=== PATIENT | male | born 1940 | race Two or more races ===

== ENCOUNTER 2018-07-08 22:31 | Inpatient (IN) | payer MEDICARE, MEDICAID ==
[~2018-07-08] VITALS: Ht 165.1 cm; Wt 47.7 kg
[~2018-07-08 22:31] MED LIST: ADVAIR 250/501 PUFFS INH; FUROSEMIDE10 MG/1 M2 PO; FUROSEMIDE20 M1 ORAL; KLOR-CON 1010 MEQ ORAL; LEVAQUIN500 MG ORAL; LOVENOX10 MG SUBQ; MAGNESIUM OXID400 M1 ORAL; NORCO 5-325 TA1 EACH ORAL; PROTONIX40 MG ORAL; SPIRIVA18 MCG INH
[2018-07-08 22:35] VITALS: BP 164/95
--- NOTE | 2018-07-08 22:40 | NUR ---
ED Nurse Note: Patient was brought by Ritika from [facility] c/o loss appetite for 2 weeks. patient denies any pain pt is on 2 liter nasal cannula, with no signs of distress. pt is aox4, with skin intact
[2018-07-08] MEDS ORDERED: Solu-MEDROL 125mg Inj IVP ONE (22:45)
[2018-07-08] MEDS ORDERED: Ipratropium 0.02% Inh Soln 2.5ml UD HHN ONE (22:45)
[2018-07-08] MEDS ORDERED: Albuterol ud Inhalation HHN ONE (22:45)
[2018-07-08] MEDS ORDERED: MAGNESIUM OXID400 M1 ORAL (22:59)
[2018-07-08] MEDS ORDERED: CARVEDILOL6.25 MG ORAL (22:59)
[2018-07-08] MEDS ORDERED: TAMSULOSIN HCL0.4 MG ORAL (22:59)
[2018-07-08] MEDS ORDERED: PANTOPRAZOLE SO40 MG ORAL (22:59)
[2018-07-08] MEDS ORDERED: DOCUSATE SODIU250 MG ORAL (22:59)
[2018-07-08] MEDS ORDERED: ASPIR 8181 MG ORAL (22:59)
[2018-07-08] MEDS ORDERED: ALBUTEROL2.5 MG/3 M INH (22:59)
[2018-07-08] MEDS ORDERED: LOSARTAN POTASS25 MG ORAL (22:59)
[2018-07-08 23:09] LABS: BASOPHILS % (AUTO) 1.4 % (0.0-2.0); EOSINOPHILS % (AUTO) 3.9 % (0.0-3.0); HEMATOCRIT 44.5 % (42.0-52.0); HEMOGLOBIN 14.6 G/DL (14.2-18.0); MEAN CORPUSCULAR VOLUME 94 FL (80-99); NEUTROPHILS % (AUTO) 57.7 % (45.0-75.0); PLATELET COUNT 115 K/UL (150-450); RED BLOOD COUNT 4.76 M/UL (4.70-6.10); RED CELL DISTRIBUTION WIDTH 12.5 % (11.6-14.8); WHITE BLOOD COUNT 6.8 K/UL (4.8-10.8)
[2018-07-08 23:34] LABS: APPEARANCE,URINE CLEAR; BILIRUBIN, URINE 1+ (NEGATIVE); GLUCOSE, URINE (UA) NEGATIVE (NEGATIVE); KETONES,URINE 4+ (NEGATIVE); LEUKOCYTE ESTERASE ,URINE 1+ (NEGATIVE); NITRITE,URINE NEGATIVE (NEGATIVE); PH,URINE 5 (4.5-8.0); PROTEIN,URINE 2+ (NEGATIVE); UROBILINOGEN,URINE 4 MG/DL (0.0-1.0)
[2018-07-08 23:36] LABS: ALANINE AMINOTRANSFERASE 29 U/L (12-78); ALBUMIN 4.1 G/DL (3.4-5.0); ALBUMIN/GLOBULIN RATIO 1.3 (1.0-2.7); ALKALINE PHOSPHATASE 117 U/L (46-116); ANION GAP 13 mmol/L (5-15); ASPARTATE AMINO TRANSFERASE 33 U/L (15-37); BILIRUBIN,TOTAL 1.1 MG/DL (0.2-1.0); BLOOD UREA NITROGEN 8 mg/dL (7-18); CALCIUM 8.9 MG/DL (8.5-10.1); CARBON DIOXIDE 28 MMOL/L (21-32); CHLORIDE 94 MMOL/L (98-107); COLOR,URINE YELLOW; CREATININE 0.8 MG/DL (0.55-1.30); POTASSIUM 4.2 MMOL/L (3.5-5.1); SODIUM 135 MMOL/L (136-145)
[2018-07-08 23:38] LABS: BILIRUBIN,DIRECT 0.4 MG/DL (0.0-0.3)
[2018-07-09] VITALS (8 sets, daily range): BP systolic 91–133; BP diastolic 54–99
--- NOTE | 2018-07-09 00:43 | Emergency Room Report ---
History of Present Illness General Chief Complaint: General Complaint Source: Patient, Medical Record, EMS Present Illness HPI This a 77-year-old male who has a history of oxygen dependent COPD. He was sent in from senior care with chief complaint of weakness and lack of appetite. Onset for last 2 weeks. Patient complained of feeling short of breath. Denies any fever chills but denies any chest pain. Does have some weight loss. Nothing made it better. Worse with exertion. Allergies: Coded Allergies: No Known Allergies (Unverified , 09/11/15) Patient History Past Medical History: see triage record, old chart reviewed Past Surgical History: other Pertinent Family History: none Social History: Denies: smoking - History of Immunizations: other Reviewed Nursing Documentation: PMH: Agreed; PSxH: Agreed Nursing Documentation-PMH Hx Cardiac Problems: Yes Hx COPD: Yes Hx Cancer: No Hx Gastrointestinal Problems: No Hx Neurological Problems: No Review of Systems Constitutional: Reports: weakness Eye: Denies: eye pain, blurred vision ENT: Denies: ear pain, nose congestion, throat swelling Respiratory: Reports: cough, shortness of breath Cardiovascular: Denies: chest pain, palpitations Gastrointestinal: Denies: abdominal pain, diarrhea, nausea, vomiting Musculoskeletal: Denies: back pain, joint pain Skin: Denies: rash Neurological: Denies: headache, numbness Endocrine: Denies: increased thirst, increased urine Hematologic/Lymphatic: Denies: easy bruising All Other Systems: negative except mentioned in HPI Physical Exam Vital Signs Date Time Temp Pulse Resp B/P (MAP) Pulse Ox O2 Delivery O2 Flow Rate FiO2 07/08/18 22:31 97.3 98 18 164/95 98 Room Air 07/08/18 23:13 2.0 28 vitals with high blood pressure Sp02 EP Interpretation: reviewed, normal General Appearance: no apparent distress, alert, cachetic, Chronically Ill Head: normocephalic, atraumatic Eyes: bilateral eye PERRL, bilateral eye EOMI ENT: hearing grossly normal, normal pharynx Neck: full range of motion, supple, no meningismus Respiratory: chest non-tender, decreased breath sounds, rhonchi Cardiovascular #1: regular rate, rhythm, no murmur Gastrointestinal: normal bowel sounds, non tender, no mass, no organomegaly, no bruit, non-distended Musculoskeletal: back normal, gait/station normal, normal range of motion Neurologic: alert, oriented x3 Psychiatric: mood/affect normal Skin: warm/dry Medical Decision Making Diagnostic Impression: Primary Impression: COPD with acute exacerbation Additional Impressions: Dehydration Failure to thrive in adult Hypertension Qualified Codes: I10 - Essential (primary) hypertension Proteinuria Qualified Codes: R80.9 - Proteinuria, unspecified ER Course Patient presents with failure to thrive and COPD exacerbation. No evidence of bacterial infection. No evidence of pneumonia. Will admit for further workup. I discussed the case with Dr. Reardon who will admit. Lab Results Impression labs unremarkable EKG Diagnostic Results Rate: normal Rhythm: NSR ST Segments: other - LBBB Rhythm Strip Diag. Results EP Interpretation: yes Rate: 100 Rhythm: NSR, no PVC's, no ectopy Chest X-Ray Diagnostic Results Chest X-Ray Diagnostic Results : Chest X-Ray Ordered: Yes # of Views/Limited/Complete: 1 View Indication: Shortness of Breath EP Interpretation: Yes Interpretation: no consolidation, no effusion, no pneumothorax, no acute cardiopulmonary disease, other - copd Impression: No acute disease - copd Electronically Signed by: William Patricio MD Last Vital Signs Date Time Temp Pulse Resp B/P (MAP) Pulse Ox O2 Delivery O2 Flow Rate FiO2 07/09/18 00:13 97.7 99 21 132/99 100 Room Air 07/08/18 23:31 2.0 28 Status: improved Disposition: ADMITTED INPATIENT Condition: Serious Referrals: Terri Walton MD (PCP) William Patricio MD Jul 09, 2018 00:43
--- NOTE | 2018-07-09 01:10 | NUR ---
NURSE NOTES: Received telephone report from ER nurse LONDON Powell. Awaiting arrival of patient.
--- NOTE | 2018-07-09 01:10 | NUR ---
ED Nurse Note: TELEPHONE REPORT WAS GIVEN TO LONDON CARDENAS
[2018-07-09] MEDS ORDERED: ATORVASTATIN CA20 MG ORAL (01:14)
--- NOTE | 2018-07-09 01:30 | NUR ---
ED Nurse Note: PT TRANFERRED TO MEDSURG UNIT WITH DENNIS, EMT, AND ROSAURA EMT. PT HAS ALL BELONINGS, PT DENIES PAIN, PT IS AOX4, SKIN IS INTACT WITH VITAL STABLES, PT IS ON 2L NASAL CANNULA
--- NOTE | 2018-07-09 01:35 | NUR ---
NURSE NOTES: Received patient via tech. Patient A&0x4. On nasal cannula 2L/min. No signs of distress or labored breathing. IV intact, patent, and saline locked. Bed in lowest position with call light in reach. Will call MD for orders. Will continue to monitor.
[2018-07-09] MEDS ORDERED: Albuterol ud Inhalation HHN PRN (03:00)
[2018-07-09] MEDS: 1/2NS w/KCl 20mEq 1000ml 1,000 ML IV SCH ×2 (06:54→07:05)
[2018-07-09] MEDS: Albuterol/Ipratropium 3ml neb HHN SCH ×3 (07:00→20:12)
--- NOTE | 2018-07-09 07:30 | NUR ---
NURSE NOTES: Received pt from LONDON SINGLETON. Pt is alert and orient x4. pt has NC 2L/M. pt has in tact iv access RAC 20g is running well. all needs attended, bed is locked and is in the lowest position. call light within easy reach. will continue to monitor.
--- NOTE | 2018-07-09 08:32 | NUR ---
HAND-OFF: Report given to LONDON Rodriguez.
[2018-07-09] MEDS: Heparin 5000 units/ml inj SUBQ SCH ×2 (09:00→20:45)
[2018-07-09] MEDS: Aspirin EC 81mg tab ORAL SCH (09:12)
[2018-07-09] MEDS: Docusate 250mg cap ORAL SCH ×2 (09:12→17:16)
[2018-07-09] MEDS: Losartan 25mg tab ORAL SCH (09:12)
[2018-07-09] MEDS: Carvedilol 6.25mg Tab ORAL SCH ×2 (09:13→20:45)
[2018-07-09] MEDS: Solu-MEDROL 125mg Inj IVP SCH (09:13)
[2018-07-09] MEDS: Magnesium Oxide 400mg tab ORAL SCH ×2 (09:14→17:15)
[2018-07-09] MEDS: Potassium Chloride 30 MEQ in 1/2 NS 1000ml 1,000 ML IV SCH (09:17)
--- NOTE | 2018-07-09 09:24 | NUR ---
REHAB MED PT NOTE CONSULT TESSA HEARDTED, PATIENT WILL BENEFIT FROM SKILLED PT DURING STAY FOR RETURN TO [facility]. RECOMMEND SNF AT [place].PLAN OF CARE INITIATED. LIMITD BY WEAKNESS AND DIZZINESS WITH GAIT. ESTELA SIMON PT DPT Addendum: 07/09/18 at 0924 by ESTELA YUNG PT Amended: Links added.
--- NOTE | 2018-07-09 11:52 | Diagnostic Imaging Report ---
Indication: Shortness of breath Technique: One view of the chest Comparison: 09/18/2015 Findings: Lungs are hyperinflated. Apparent bilateral basilar opacities likely reflect prominent overlying soft tissue. Lungs and pleural spaces otherwise grossly appear clear. The heart size is normal. There is tortuous and calcified. Impression: COPD changes. No definite acute process
--- NOTE | 2018-07-09 17:30 | History and Physical Report ---
DATE OF ADMISSION: 07/09/2018 CHIEF COMPLAINT: Shortness of breath. HISTORY OF PRESENT ILLNESS: This is the 77-year-old Bengali [place] male who presented to the emergency department, complaining of shortness of breath. The patient is under my care in a [facility] facility. He has multiple medical problems. The patient is admitted for further evaluation and management. PAST MEDICAL HISTORY: 1. Extensive lung emphysema. 2. Cardiomyopathy. 3. Anxiety disorder. MEDICATIONS: Home medications, potassium chloride, albuterol inhaler, baby aspirin, atorvastatin, Coreg, sodium docusate, Atrovent inhaler, losartan, magnesium oxide, Protonix, and tamsulosin. ALLERGIES: No known drug allergies. FAMILY HISTORY: Unremarkable. SOCIAL HISTORY: The patient lives in a [facility]. HABITS: He is nonsmoker and nondrinker. There is no history of illicit drug abuse. REVIEW OF SYSTEMS: HEENT: Hearing and eyesight are normal. ENDOCRINE: No history of diabetes, thyroid, or adrenal problems. RESPIRATORY: Significant for shortness of breath, especially during exercise. NEUROLOGICAL: No history of stroke, syncope, or Parkinson disease. PSYCHIATRIC: Significant for history of anxiety. PHYSICAL EXAMINATION: GENERAL: This is an elderly short underdeveloped male, who is in no acute distress. VITAL SIGNS: Blood pressure 113/61, pulse is 77 and regular, respirations 18, and temperature 97.5. HEENT: The head is normocephalic and atraumatic. Pupils are equal, round, and reactive to light and accommodation consensually. NECK: He has a midline lipoma. LUNGS: He has increased anterior-posterior diameter and bilateral wheezes. HEART: Regular rate and rhythm without rubs, murmurs, or gallops. ABDOMEN: Soft and nontender. Bowel sounds were active. EXTREMITIES: No clubbing, cyanosis, or edema. NEUROLOGICAL: He is alert and oriented x4. Cranial nerves II through XII intact. LABORATORY AND ANCILLARY DATA: CBC within normal limits. CMP within normal limits. IMAGING STUDIES: Chest x-ray, COPD changes. ASSESSMENT: 1. COPD exacerbation. 2. Extensive lung emphysema. 3. Cardiomyopathy. 4. Anxiety disorder. PLAN: 1. Bronchodilators. 2. Steroids. 3. Pulmonary consults. 4. Psychiatric evaluation if needed. Terri Walton M.D. DR: JEWELS JOB#: [id number] CC:
--- NOTE | 2018-07-09 19:22 | NUR ---
NURSE NOTES: Received patient on bed awake, no s/s of any distress, denies any pain as of this time. On O2@2L via NC, IV line patent and intact, bed in low position and locked, call light within reach, will continue to monitor.
--- NOTE | 2018-07-09 19:22 | NUR ---
HAND-OFF: Report given to PAVEL.
--- NOTE | 2018-07-09 20:28 | NUR ---
CASE MANAGEMENT: REVIEW 77/M BIBA FROM [facility] CC: LOSS OF APPETITE X2 WEEKS SI: COPD EXACERBATION T 97.3 HR 102 RR 20 BP 164/95 SAT 98% NC/2L NA 135 GLUCOSE 71 TBILI 1.1 ALK PHOS 117 IS: NS IVF BOLUS X1 SOLU MEDROL IV X1 ATROVENT HHN X1 ALBUTEROL HHN X1 PATIENT ADMITTED TO MED/SURG UNIT 07/08/2018 DCP: PATIENT IS FROM [facility]
[2018-07-09] MEDS: Tamsulosin 0.4mg cap ORAL SCH (20:44)
[2018-07-09] MEDS: Atorvastatin 20mg tab ORAL SCH (20:45)
[2018-07-10] VITALS: BP 145/65
[2018-07-10] MEDS: Potassium Chloride 30 MEQ in 1/2 NS 1000ml 1,000 ML IV SCH ×2 (01:12→17:13)
[2018-07-10] MEDS: Albuterol/Ipratropium 3ml neb HHN SCH ×4 (01:39→19:37)
[2018-07-10 04:00] VITALS: BP 126/69
--- NOTE | 2018-07-10 07:22 | NUR ---
NURSE NOTES: Received pt from LONDON ZHAO. Pt is alert and orient x4. Pt has NC 2l/m. pt is eating breakfast by him self. pt has intact iv access RAC 20g is running well. pt has bruisis on the body and has fatty lamp on his neck and LFA. All needs attended, bed is locked and is in the lowest position. call light within easy reach. will continue to monitor.
--- NOTE | 2018-07-10 07:22 | NUR ---
HAND-OFF: Report given to Jennifer CALLAHAN.
[2018-07-10 08:00] VITALS: BP 100/53
[2018-07-10] MEDS: Magnesium Oxide 400mg tab ORAL SCH ×2 (08:46→17:13)
[2018-07-10] MEDS: Docusate 250mg cap ORAL SCH ×2 (08:47→17:13)
[2018-07-10] MEDS: Solu-MEDROL 125mg Inj IVP SCH (08:47)
[2018-07-10] MEDS: Carvedilol 6.25mg Tab ORAL SCH ×2 (08:47→21:22)
[2018-07-10] MEDS: Aspirin EC 81mg tab ORAL SCH (08:47)
[2018-07-10] MEDS: Losartan 25mg tab ORAL SCH (09:00)
[2018-07-10] MEDS: Heparin 5000 units/ml inj SUBQ SCH ×2 (09:00→21:00)
[2018-07-10 12:00] VITALS: BP 115/68
--- NOTE | 2018-07-10 12:12 | NUR ---
RD ASSESSMENT & RECOMMENDATIONS SEE CARE ACTIVITY FOR COMPLETE ASSESSMENT DAILY ESTIMATED NEEDS: Needs based on Pulmonary, 58.6kg 25-30 kcals/kg 0153-3463 total kcals 1-1.5 g protein/kg 59-89 g total protein 25-30 mL/kg 3295-6472 total fluid mLs NUTRITION DIAGNOSIS: Inadequate oral intake R/T decreased appetite as evidenced by pt admitted w/ c/o decreased oral intake x 2 weeks, FTT dx, currently w/ good PO intake. 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
[2018-07-10 16:00] VITALS: BP 118/72
--- NOTE | 2018-07-10 17:02 | General Progress Note ---
Assessment/Plan Assessment/Plan COPD Exacerbation - see orders. Pulm. following. Subjective Allergies: Coded Allergies: No Known Allergies (Unverified , 09/11/15) Subjective Still SOB. Objective Last 24 Hour Vital Signs Date Time Temp Pulse Resp B/P (MAP) Pulse Ox O2 Delivery O2 Flow Rate FiO2 07/10/18 16:00 97.9 96 19 118/72 (87) 95 07/10/18 13:35 99 16 98 Nasal Cannula 2.0 28 07/10/18 13:25 79 16 97 Nasal Cannula 2.0 28 07/10/18 13:25 28 07/10/18 12:00 97.4 90 18 115/68 (84) 100 07/10/18 09:00 100/53 07/10/18 09:00 Nasal Cannula 2.0 07/10/18 08:47 104 100/53 07/10/18 08:00 97.5 104 18 100/53 (69) 100 07/10/18 07:40 89 16 98 Nasal Cannula 2.0 28 07/10/18 07:31 28 07/10/18 07:31 78 18 96 Nasal Cannula 2.0 28 07/10/18 04:00 97.2 78 16 126/69 (88) 100 07/10/18 01:50 81 16 98 Nasal Cannula 2.0 28 07/10/18 01:40 80 18 96 Nasal Cannula 2.0 28 07/10/18 01:40 28 07/10/18 00:00 97.6 78 19 145/65 (91) 100 07/09/18 21:00 Nasal Cannula 2.0 07/09/18 20:45 111 133/68 07/09/18 20:23 86 18 98 Nasal Cannula 2.0 28 07/09/18 20:13 84 18 96 Nasal Cannula 2.0 28 07/09/18 20:00 97.5 111 18 133/68 (89) 97 Intake and Output 07/09/18 07/10/18 18:59 06:59 Intake Total 1060 ml 420 ml Output Total 650 ml Balance 410 ml 420 ml Intake Oral 420 ml IV Total 640 ml 420 ml Output Urine Total 650 ml Height (Feet): 5 Height (Inches): 5.00 Weight (Pounds): 150 Objective CV RR Lungs CTA Abd SNT. BS + E No CCE Terri Walton MD Jul 10, 2018 17:02
--- NOTE | 2018-07-10 19:27 | NUR ---
HAND-OFF: Report given to LONDON ZHAO.
[2018-07-10 20:00] VITALS: BP 115/65
[2018-07-10] MEDS: Tamsulosin 0.4mg cap ORAL SCH (21:23)
[2018-07-10] MEDS: Atorvastatin 20mg tab ORAL SCH (21:23)
--- NOTE | 2018-07-10 22:45 | Consultation ---
DATE OF CONSULTATION: 07/10/2018 PULMONARY CONSULTATION CONSULTING PHYSICIAN: Joey Jameson M.D. REASON FOR CONSULTATION: Shortness of breath, respiratory distress, chronic obstructive pulmonary disease exacerbation. HISTORY OF PRESENT ILLNESS: The patient is a 77-year-old male, who presents to the emergency room. The patient is admitted in 2010 with shortness of breath, cough, and congestion. The patient presents from the [facility]. The patient has end-stage emphysema, now admitted for exacerbation. X-ray shows chronic obstructive pulmonary disease changes and hyperinflation. The patient without fevers or chills at this time. No significant sputum production. No hemoptysis. Care discussed and reviewed. ER notes reviewed. PAST MEDICAL HISTORY: Notable for emphysema, cardiomyopathy, and anxiety. MEDICATIONS: Reviewed and reconciled. ALLERGIES: Reviewed. FAMILY HISTORY: Unremarkable. SOCIAL HISTORY: The patient resides in a [facility]. He is a nonsmoker, nondrinker at present. The patient is disabled. REVIEW OF SYSTEMS: Difficult to obtain. All 10 points reviewed with the patient as able and appear to be otherwise negative with the exception of the above. PHYSICAL EXAMINATION: GENERAL: A well-developed male, somewhat of advanced age. VITAL SIGNS: 98 saturation on two liters, blood pressure 115/65, pulse 90, respirations 19, and temperature 98.4. HEENT: Fairly negative. Extraocular movements are grossly intact. NECK: Supple. LUNGS: With reduced breath sounds overall. CARDIAC: Normal S1, S2. Regular rate and rhythm without murmurs, rubs, or gallops. ABDOMEN: Soft, nontender, and nondistended. EXTREMITIES: No cyanosis, clubbing, or edema. NEUROLOGIC: Grossly nonfocal. LABORATORY AND DIAGNOSTIC DATA: Laboratory data reviewed. CBC essentially negative. Platelets are 115. Sodium 135. The alkaline phosphatase 117. Electrolytes are otherwise appeared to be negative. Chest x-ray with what appears to be mostly chronic changes, no acute infiltrates. IMPRESSION: 1. Chronic obstructive pulmonary disease with acute exacerbation. 2. Shortness of breath. 3. Respiratory insufficiency. 4. Advanced age. 5. Possible mild bronchitis. 6. Hypercholesterolemia. 7. Hypertension. 8. Constipation. RECOMMENDATIONS: Supportive care. Agree with management as outlined. DuoNebs. DVT prophylaxis. Blood pressure support. IV Solu-Medrol. Monitor clinically the respiratory exam and recommend further and we will discuss as to ongoing care and management and disposition. Joey Jameson M.D. DR: JUWAN JOB#: [id number] CC: NANCY
[2018-07-11] VITALS: BP 119/68
[2018-07-11] MEDS: Albuterol/Ipratropium 3ml neb HHN SCH ×4 (01:57→20:38)
[2018-07-11 04:00] VITALS: BP 141/64
--- NOTE | 2018-07-11 07:23 | NUR ---
HAND-OFF: Report given to LUCERO Robin.
[2018-07-11 08:00] VITALS: BP 73/41
[2018-07-11] MEDS: Docusate 250mg cap ORAL SCH ×2 (08:50→17:07)
[2018-07-11] MEDS: Magnesium Oxide 400mg tab ORAL SCH ×2 (08:50→17:07)
[2018-07-11] MEDS: Aspirin EC 81mg tab ORAL SCH (08:50)
[2018-07-11] MEDS: Solu-MEDROL 125mg Inj IVP SCH (08:50)
[2018-07-11] MEDS: Carvedilol 6.25mg Tab ORAL SCH ×2 (08:51→21:31)
[2018-07-11] MEDS: Heparin 5000 units/ml inj SUBQ SCH ×2 (08:52→21:00)
[2018-07-11] MEDS: Losartan 25mg tab ORAL SCH (08:52)
--- NOTE | 2018-07-11 09:05 | Pulmonology Progress Note ---
Assessment/Plan Assessment/Plan IMPRESSION: 1. Chronic obstructive pulmonary disease with acute exacerbation. 2. Shortness of breath. 3. Respiratory insufficiency. 4. Advanced age. 5. Possible mild bronchitis. 6. Hypercholesterolemia. 7. Hypertension. 8. Constipation. PLAN care as is monitor IV solumedrol respiratory care monitor I/O follow up for change follow up labs impression, plan, and exam edited and reviewed in detail care discussed with RN Subjective Allergies: Coded Allergies: No Known Allergies (Unverified , 09/11/15) Subjective care noted and reviewed overall no distress Objective Last 24 Hour Vital Signs Date Time Temp Pulse Resp B/P (MAP) Pulse Ox O2 Delivery O2 Flow Rate FiO2 07/11/18 08:52 73/41 07/11/18 08:51 104 73/41 07/11/18 08:00 95.5 104 17 73/41 (52) 96 07/11/18 07:52 100 18 99 Nasal Cannula 2.0 28 07/11/18 07:44 Nasal Cannula 2.0 28 07/11/18 07:44 99 Nasal Cannula 2.0 28 07/11/18 07:42 100 18 99 Nasal Cannula 2.0 28 07/11/18 04:00 98.2 96 17 141/64 (89) 99 07/11/18 01:57 82 18 98 Nasal Cannula 2.0 28 07/11/18 01:47 80 18 97 Nasal Cannula 2.0 28 07/11/18 00:00 98.3 86 17 119/68 (85) 97 07/10/18 21:22 90 115/65 07/10/18 21:00 Nasal Cannula 2.0 07/10/18 20:00 98.4 90 19 115/65 (82) 97 07/10/18 19:49 Nasal Cannula 2.0 28 07/10/18 19:49 98 Nasal Cannula 2.0 28 07/10/18 19:41 88 18 99 Nasal Cannula 2.0 28 07/10/18 19:29 85 18 99 Nasal Cannula 2.0 28 07/10/18 16:00 97.9 96 19 118/72 (87) 95 07/10/18 13:35 99 16 98 Nasal Cannula 2.0 28 07/10/18 13:25 79 16 97 Nasal Cannula 2.0 28 07/10/18 13:25 28 07/10/18 12:00 97.4 90 18 115/68 (84) 100 Intake and Output 07/10/18 07/11/18 19:00 07:00 Intake Total 1410 ml 900 ml Output Total 1000 ml 2000 ml Balance 410 ml -1100 ml Intake Oral 750 ml 480 ml IV Total 660 ml 420 ml Output Urine Total 1000 ml 2000 ml # Voids 5 Objective GENERAL: A well-developed male, somewhat of advanced age. HEENT: Fairly negative. Extraocular movements are grossly intact. NECK: Supple. LUNGS: With reduced breath sounds overall. minimal wheeze CARDIAC: Normal S1, S2. Regular rate and rhythm without murmurs, rubs, or gallops. ABDOMEN: Soft, nontender, and nondistended. EXTREMITIES: No cyanosis, clubbing, or edema. NEUROLOGIC: Grossly nonfocal. Microbiology Date/Time Source Procedure Growth Status 07/09/18 00:44 Nasal Nares MRSA Culture - Final NO METHICILLIN RESISTANT STAPH AUREUS... Complete 07/09/18 00:44 Rectum VRE Culture - Final NO VANCOMYCIN RESISTANT ENTEROCOCCUS ... Complete Current Medications Medications (Trade) Dose Ordered Sig/Beverley Route PRN Reason Start Time Stop Time Status Last Admin Dose Admin Albuterol Sulfate (Proventil) 2.5 mg BID PRN HHN Shortness of Breath 07/09/18 03:00 07/14/18 02:59 Albuterol/ Ipratropium (Albuterol/ Ipratropium) 3 ml Q6HRT HHN 07/09/18 07:00 07/14/18 06:59 07/11/18 07:42 Aspirin (Ecotrin) 81 mg DAILY ORAL 07/09/18 09:00 08/08/18 08:59 07/11/18 08:50 Atorvastatin Calcium (Lipitor) 20 mg BEDTIME ORAL 07/09/18 21:00 08/08/18 20:59 07/10/18 21:23 Carvedilol (Coreg) 6.25 mg EVERY 12 HOURS ORAL 07/09/18 09:00 08/08/18 08:59 07/10/18 21:22 Docusate Sodium (Colace) 250 mg TWICE A DAY ORAL 07/09/18 09:00 08/08/18 08:59 07/11/18 08:50 Heparin Sodium (Porcine) (Heparin 5000 units/ml) 5,000 units EVERY 12 HOURS SUBQ 07/09/18 09:00 08/08/18 08:59 Levofloxacin 100 ml @ 100 mls/hr Q24H IVPB 07/09/18 04:30 07/16/18 04:29 07/11/18 04:19 Losartan Potassium (Cozaar) 25 mg DAILY ORAL 07/09/18 09:00 08/08/18 08:59 07/09/18 09:12 Magnesium Oxide (Mag-Ox 400mg) 400 mg BID ORAL 07/09/18 09:00 08/08/18 08:59 07/11/18 08:50 Methylprednisolone Sodium Succinate (Solu-MEDROL) 60 mg DAILY IVP 07/09/18 09:00 08/08/18 08:59 07/11/18 08:50 Pantoprazole (Protonix) 40 mg DAILY ORAL 07/09/18 09:00 08/08/18 08:59 07/11/18 08:50 Potassium Chloride 30 meq/ Sodium Chloride 1,015 ml @ 60 mls/hr [id number] IV 07/09/18 08:00 08/08/18 07:59 07/10/18 17:13 Tamsulosin HCl (Flomax) 0.4 mg BEDTIME ORAL 07/09/18 21:00 08/08/18 20:59 07/10/18 21:23 Joey Jameson MD Jul 11, 2018 09:05
--- NOTE | 2018-07-11 09:15 | NUR ---
NURSE NOTES: PT AXOX4, CALM, RESTING IN BED . DENIES PAIN AND SOB. PT ON 2L NC. BED IN LOWEST POSITION WITH HOB ELEVATED. CALL LIGHT WITHIN REACH. WILL CONTINUE TO MONITOR.
[2018-07-11 11:32] VITALS: BP 114/70
[2018-07-11] MEDS: Potassium Chloride 30 MEQ in 1/2 NS 1000ml 1,000 ML IV SCH (12:22)
--- NOTE | 2018-07-11 14:26 | General Progress Note ---
Assessment/Plan Assessment/Plan COPD Exacerbation - see orders. Pulm. following. Subjective Allergies: Coded Allergies: No Known Allergies (Unverified , 09/11/15) Subjective Still SOB. Objective Last 24 Hour Vital Signs Date Time Temp Pulse Resp B/P (MAP) Pulse Ox O2 Delivery O2 Flow Rate FiO2 07/11/18 13:55 99 18 99 Nasal Cannula 2.0 28 07/11/18 13:46 105 18 99 Nasal Cannula 2.0 28 07/11/18 11:32 96.0 101 16 114/70 (85) 97 07/11/18 09:00 Nasal Cannula 2.0 07/11/18 08:52 73/41 07/11/18 08:51 104 73/41 07/11/18 08:00 95.5 104 17 73/41 (52) 96 07/11/18 07:52 100 18 99 Nasal Cannula 2.0 28 07/11/18 07:44 Nasal Cannula 2.0 28 07/11/18 07:44 99 Nasal Cannula 2.0 28 07/11/18 07:42 100 18 99 Nasal Cannula 2.0 28 07/11/18 04:00 98.2 96 17 141/64 (89) 99 07/11/18 01:57 82 18 98 Nasal Cannula 2.0 28 07/11/18 01:47 80 18 97 Nasal Cannula 2.0 28 07/11/18 00:00 98.3 86 17 119/68 (85) 97 07/10/18 21:22 90 115/65 07/10/18 21:00 Nasal Cannula 2.0 07/10/18 20:00 98.4 90 19 115/65 (82) 97 07/10/18 19:49 Nasal Cannula 2.0 28 07/10/18 19:49 98 Nasal Cannula 2.0 28 07/10/18 19:41 88 18 99 Nasal Cannula 2.0 28 07/10/18 19:29 85 18 99 Nasal Cannula 2.0 28 07/10/18 16:00 97.9 96 19 118/72 (87) 95 Intake and Output 07/10/18 07/11/18 18:59 06:59 Intake Total 1410 ml 900 ml Output Total 1000 ml 2000 ml Balance 410 ml -1100 ml Intake Oral 750 ml 480 ml IV Total 660 ml 420 ml Output Urine Total 1000 ml 2000 ml # Voids 5 Height (Feet): 5 Height (Inches): 5.00 Weight (Pounds): 105 Objective CV RR Lungs CTA Abd SNT. BS + E No CCE Terri Walton MD Jul 11, 2018 14:26
[2018-07-11 15:40] VITALS: BP 135/63
[2018-07-11 20:00] VITALS: BP 143/76
--- NOTE | 2018-07-11 20:01 | NUR ---
NURSE NOTES: Received patient in bed, awake, alert, oriented, no acute distress noted, call light is within the reach, bed is locked and alarm is on, be is in low position. Will continue with POC
[2018-07-11] MEDS: Tamsulosin 0.4mg cap ORAL SCH (21:30)
[2018-07-11] MEDS: Atorvastatin 20mg tab ORAL SCH (21:30)
[2018-07-12] VITALS: BP 118/64
[2018-07-12] MEDS: Albuterol/Ipratropium 3ml neb HHN SCH ×4 (01:19→19:36)
[2018-07-12 04:00] VITALS: BP 147/77
[2018-07-12] MEDS: Potassium Chloride 30 MEQ in 1/2 NS 1000ml 1,000 ML IV SCH (04:26)
--- NOTE | 2018-07-12 06:53 | NUR ---
HAND-OFF: Report given to Morris CALLAHAN.
[2018-07-12 08:00] VITALS: BP 98/56
--- NOTE | 2018-07-12 08:24 | Pulmonology Progress Note ---
Assessment/Plan Assessment/Plan IMPRESSION: 1. Chronic obstructive pulmonary disease with acute exacerbation. 2. Shortness of breath. 3. Respiratory insufficiency. 4. Advanced age. 5. Possible mild bronchitis. 6. Hypercholesterolemia. 7. Hypertension. 8. Constipation. PLAN care as is monitor IV solumedrol taper and start prednisone in am respiratory care monitor I/O follow up for change follow up labs for change dispo pending further improvement impression, plan, and exam edited and reviewed in detail care discussed with RN Subjective Allergies: Coded Allergies: No Known Allergies (Unverified , 09/11/15) Subjective care noted and reviewed overall no distress on oxygen Objective Last 24 Hour Vital Signs Date Time Temp Pulse Resp B/P (MAP) Pulse Ox O2 Delivery O2 Flow Rate FiO2 07/12/18 08:00 112 18 99 Nasal Cannula 2.0 28 07/12/18 07:46 96 Nasal Cannula 2.0 28 07/12/18 07:46 108 17 96 Nasal Cannula 2.0 28 07/12/18 07:46 Nasal Cannula 2.0 28 07/12/18 04:00 98.2 90 17 147/77 (100) 07/12/18 01:29 100 20 99 Nasal Cannula 2.0 28 07/12/18 01:16 101 20 98 Nasal Cannula 2.0 28 07/12/18 00:00 98.1 17 118/64 (82) 07/11/18 22:06 Nasal Cannula 2.0 07/11/18 21:31 79 143/76 07/11/18 20:44 92 20 99 Nasal Cannula 2.0 28 07/11/18 20:35 91 20 98 Nasal Cannula 2.0 28 07/11/18 20:34 98 Nasal Cannula 2.0 28 07/11/18 20:34 Nasal Cannula 2.0 28 07/11/18 20:00 98.1 85 17 143/76 (98) 07/11/18 15:40 97.9 102 18 135/63 (87) 98 07/11/18 13:55 99 18 99 Nasal Cannula 2.0 28 07/11/18 13:46 105 18 99 Nasal Cannula 2.0 28 07/11/18 11:32 96.0 101 16 114/70 (85) 97 07/11/18 09:00 Nasal Cannula 2.0 07/11/18 08:52 73/41 07/11/18 08:51 104 73/41 Intake and Output 07/11/18 07/12/18 19:00 07:00 Intake Total 1120 ml 820 ml Balance 1120 ml 820 ml Intake Oral 760 ml IV Total 360 ml 420 ml Other 400 ml # Voids 6 2 Objective GENERAL: A well-developed male, somewhat of advanced age. HEENT: Fairly negative. Extraocular movements are grossly intact. NECK: Supple. LUNGS: With reduced breath sounds overall. occasional wheeze CARDIAC: Normal S1, S2. Regular rate and rhythm without murmurs, rubs, or gallops. ABDOMEN: Soft, nontender, and nondistended. EXTREMITIES: No cyanosis, clubbing, or edema. NEUROLOGIC: Grossly nonfocal. confused reviewed and examined Current Medications Medications (Trade) Dose Ordered Sig/Beverley Route PRN Reason Start Time Stop Time Status Last Admin Dose Admin Albuterol Sulfate (Proventil) 2.5 mg BID PRN HHN Shortness of Breath 07/09/18 03:00 07/14/18 02:59 Albuterol/ Ipratropium (Albuterol/ Ipratropium) 3 ml Q6HRT HHN 07/09/18 07:00 07/14/18 06:59 07/12/18 07:46 Aspirin (Ecotrin) 81 mg DAILY ORAL 07/09/18 09:00 08/08/18 08:59 07/11/18 08:50 Atorvastatin Calcium (Lipitor) 20 mg BEDTIME ORAL 07/09/18 21:00 08/08/18 20:59 07/11/18 21:30 Carvedilol (Coreg) 6.25 mg EVERY 12 HOURS ORAL 07/09/18 09:00 08/08/18 08:59 07/11/18 21:31 Docusate Sodium (Colace) 250 mg TWICE A DAY ORAL 07/09/18 09:00 08/08/18 08:59 07/11/18 17:07 Heparin Sodium (Porcine) (Heparin 5000 units/ml) 5,000 units EVERY 12 HOURS SUBQ 07/09/18 09:00 08/08/18 08:59 Levofloxacin 100 ml @ 100 mls/hr Q24H IVPB 07/09/18 04:30 07/16/18 04:29 07/12/18 04:36 Losartan Potassium (Cozaar) 25 mg DAILY ORAL 07/09/18 09:00 08/08/18 08:59 07/09/18 09:12 Magnesium Oxide (Mag-Ox 400mg) 400 mg BID ORAL 07/09/18 09:00 08/08/18 08:59 07/11/18 17:07 Methylprednisolone Sodium Succinate (Solu-MEDROL) 60 mg DAILY IVP 07/09/18 09:00 08/08/18 08:59 07/11/18 08:50 Pantoprazole (Protonix) 40 mg DAILY ORAL 07/09/18 09:00 08/08/18 08:59 07/11/18 08:50 Potassium Chloride 30 meq/ Sodium Chloride 1,015 ml @ 60 mls/hr [id number] IV 07/09/18 08:00 08/08/18 07:59 07/12/18 04:26 Tamsulosin HCl (Flomax) 0.4 mg BEDTIME ORAL 07/09/18 21:00 08/08/18 20:59 07/11/18 21:30 Joey Jameson MD Jul 12, 2018 08:24
[2018-07-12] MEDS: Losartan 25mg tab ORAL SCH (08:33)
[2018-07-12] MEDS: Heparin 5000 units/ml inj SUBQ SCH ×2 (08:33→21:00)
[2018-07-12] MEDS: Carvedilol 6.25mg Tab ORAL SCH ×2 (08:33→21:16)
[2018-07-12] MEDS: Aspirin EC 81mg tab ORAL SCH (08:35)
[2018-07-12] MEDS: Docusate 250mg cap ORAL SCH ×2 (08:35→17:17)
[2018-07-12] MEDS: Magnesium Oxide 400mg tab ORAL SCH ×2 (08:36→17:17)
[2018-07-12] MEDS: Solu-MEDROL 40mg Inj IVP SCH (08:40)
[2018-07-12 12:00] VITALS: BP 118/67
--- NOTE | 2018-07-12 15:49 | NUR ---
NURSE NOTES: PT IS AXOX4, CALM, RESTING IN BED. DENIES PAIN OR SOB. PT ON 2L NC. IN NO APPARENT DISTRESS AT THIS TIME. PT AMBULATORY WITH PHYSICAL THERAPIST. PT ENCOURAGED TO SIT UP FOR MEALS AND WALK. PT VERBALIZED UNDERSTANDING. PT REQUESTS FOR LAXATIVE. LAST BM ON 07/08/18. RN PAGED DR. LEDBETTER FOR PRN LAXATIVE ORDER. WILL CONTINUE TO MONITOR.
[2018-07-12 16:30] VITALS: BP 125/69
[2018-07-12] MEDS ORDERED: Sennosides 8.6mg tab ORAL PRN (17:30)
[2018-07-12] MEDS ORDERED: Lactulose 20gm/30ml UDC ORAL PRN (17:30)
--- NOTE | 2018-07-12 17:44 | General Progress Note ---
Assessment/Plan Assessment/Plan COPD Exacerbation - see orders. Pulm. following. Hope to DC tomorrow. Subjective Allergies: Coded Allergies: No Known Allergies (Unverified , 09/11/15) Subjective Still SOB. Constipated. Objective Last 24 Hour Vital Signs Date Time Temp Pulse Resp B/P (MAP) Pulse Ox O2 Delivery O2 Flow Rate FiO2 07/12/18 16:30 98.1 93 18 125/69 (87) 98 07/12/18 13:26 99 19 99 Nasal Cannula 2.0 28 07/12/18 13:16 102 18 97 Nasal Cannula 2.0 28 07/12/18 12:00 97.7 94 18 118/67 (84) 98 07/12/18 09:00 Nasal Cannula 2.0 07/12/18 08:33 98/56 07/12/18 08:33 112 98/56 07/12/18 08:00 98.0 109 18 98/56 (70) 99 07/12/18 08:00 112 18 99 Nasal Cannula 2.0 28 07/12/18 07:46 96 Nasal Cannula 2.0 28 07/12/18 07:46 108 17 96 Nasal Cannula 2.0 28 07/12/18 07:46 Nasal Cannula 2.0 28 07/12/18 04:00 98.2 90 17 147/77 (100) 07/12/18 01:29 100 20 99 Nasal Cannula 2.0 28 07/12/18 01:16 101 20 98 Nasal Cannula 2.0 28 07/12/18 00:00 98.1 17 118/64 (82) 07/11/18 22:06 Nasal Cannula 2.0 07/11/18 21:31 79 143/76 07/11/18 20:44 92 20 99 Nasal Cannula 2.0 28 07/11/18 20:35 91 20 98 Nasal Cannula 2.0 28 07/11/18 20:34 98 Nasal Cannula 2.0 28 07/11/18 20:34 Nasal Cannula 2.0 28 07/11/18 20:00 98.1 85 17 143/76 (98) Intake and Output 07/11/18 07/12/18 19:00 07:00 Intake Total 1120 ml 880 ml Balance 1120 ml 880 ml Intake Oral 760 ml IV Total 360 ml 480 ml Other 400 ml # Voids 6 2 Height (Feet): 5 Height (Inches): 5.00 Weight (Pounds): 105 Objective CV RR Lungs CTA Abd SNT. BS + E No CCE Terri Walton MD Jul 12, 2018 17:44
[2018-07-12] MEDS: Milk of Magnesia 30ml Ud ORAL PRN (18:01)
--- NOTE | 2018-07-12 18:45 | NUR ---
NURSE NOTES: PT GIVEN PRN MOM ORDERED. PT WALKED AROUND UNIT WITH STEADY GAIT. IN NO APPARENT DISTRESS AT THIS TIME. WILL CONTINUE TO MONITOR.
--- NOTE | 2018-07-12 19:36 | NUR ---
HAND-OFF: Report given to Avelina UREÑA RN.
--- NOTE | 2018-07-12 19:37 | NUR ---
NURSE NOTES: Received patient in no apparent distress noted. A&OX4. NC 2L is on, no s/s of respiratory distress noted. IV site patent and intact. Bed in lowest position. Call light within reach. Will continue to monitor.
[2018-07-12 20:00] VITALS: BP 141/75
[2018-07-12] MEDS: Atorvastatin 20mg tab ORAL SCH (21:15)
[2018-07-12] MEDS: Tamsulosin 0.4mg cap ORAL SCH (21:15)
[2018-07-13] VITALS: BP 134/74
[2018-07-13] MEDS: Albuterol/Ipratropium 3ml neb HHN SCH ×4 (01:34→20:22)
[2018-07-13 04:00] VITALS: BP 131/65
--- NOTE | 2018-07-13 07:26 | NUR ---
HAND-OFF: Report given to Amna CALLAHAN.
[2018-07-13 07:38] LABS: ANION GAP 4 mmol/L (5-15); BLOOD UREA NITROGEN 9 mg/dL (7-18); CALCIUM 8.4 MG/DL (8.5-10.1); CARBON DIOXIDE 31 MMOL/L (21-32); CHLORIDE 103 MMOL/L (98-107); CREATININE 0.6 MG/DL (0.55-1.30); POTASSIUM 3.9 MMOL/L (3.5-5.1); SODIUM 137 MMOL/L (136-145)
[2018-07-13 08:00] VITALS: BP 116/62
--- NOTE | 2018-07-13 08:00 | NUR ---
NURSE NOTES: Received patient in bed, resting and alert X4. Patient denies pain. No signs of respiratory distress, patient in 2L NC. Bed in lowest position, call light within reach. Will continue to monitor.
[2018-07-13 08:16] LABS: HEMATOCRIT 32.4 % (42.0-52.0); HEMOGLOBIN 10.8 G/DL (14.2-18.0); MEAN CORPUSCULAR VOLUME 93 FL (80-99); PLATELET COUNT 77 K/UL (150-450); RED CELL DISTRIBUTION WIDTH 12.6 % (11.6-14.8); WHITE BLOOD COUNT 3.7 K/UL (4.8-10.8)
[2018-07-13] MEDS: Heparin 5000 units/ml inj SUBQ SCH ×2 (09:00→21:00)
[2018-07-13] MEDS: Aspirin EC 81mg tab ORAL SCH (09:18)
[2018-07-13] MEDS: Carvedilol 6.25mg Tab ORAL SCH ×2 (09:18→21:31)
[2018-07-13] MEDS: Magnesium Oxide 400mg tab ORAL SCH ×2 (09:18→18:53)
[2018-07-13] MEDS: Docusate 250mg cap ORAL SCH ×2 (09:18→18:53)
[2018-07-13] MEDS: Losartan 25mg tab ORAL SCH (09:18)
[2018-07-13] MEDS: Solu-MEDROL 40mg Inj IVP SCH (09:19)
[2018-07-13 12:00] VITALS: BP 118/71
[2018-07-13] MEDS: Milk of Magnesia 30ml Ud ORAL PRN (13:47)
--- NOTE | 2018-07-13 15:12 | NUR ---
PT notes: patient declined treatment today; will follow up next treatment schedule.
--- NOTE | 2018-07-13 15:42 | General Progress Note ---
Assessment/Plan Assessment/Plan COPD Exacerbation - see orders. Pulm. following. Hope to DC tomorrow. Refusing DC. Add laxatives. Subjective Allergies: Coded Allergies: No Known Allergies (Unverified , 09/11/15) Subjective Still SOB. Constipated. Objective Last 24 Hour Vital Signs Date Time Temp Pulse Resp B/P (MAP) Pulse Ox O2 Delivery O2 Flow Rate FiO2 07/13/18 12:39 101 20 100 Nasal Cannula 2.0 28 07/13/18 12:31 97 20 98 Nasal Cannula 2.0 28 07/13/18 12:00 98.0 83 17 118/71 (87) 99 07/13/18 09:18 131/65 07/13/18 09:18 106 131/65 07/13/18 09:00 Nasal Cannula 2.0 07/13/18 08:00 97.7 92 18 116/62 (80) 99 07/13/18 08:00 98.6 92 17 116/62 (80) 99 07/13/18 07:45 106 20 100 Nasal Cannula 2.0 28 07/13/18 07:38 Nasal Cannula 2.0 28 07/13/18 07:38 105 20 98 Nasal Cannula 2.0 28 07/13/18 07:38 98 Nasal Cannula 2.0 28 07/13/18 04:00 97.0 93 18 131/65 (87) 98 07/13/18 01:35 94 18 99 Nasal Cannula 2.0 28 07/13/18 01:25 90 18 96 Nasal Cannula 2.0 28 07/13/18 00:00 97.7 83 18 134/74 (94) 98 07/12/18 21:16 99 141/75 07/12/18 21:00 Nasal Cannula 2.0 07/12/18 20:00 97.3 99 18 141/75 (97) 96 07/12/18 19:40 Nasal Cannula 2.0 28 07/12/18 19:39 98 18 99 Nasal Cannula 2.0 28 07/12/18 19:39 97 Nasal Cannula 2.0 28 07/12/18 19:30 92 18 97 Nasal Cannula 2.0 28 07/12/18 16:30 98.1 93 18 125/69 (87) 98 Intake and Output 07/12/18 07/13/18 19:00 07:00 Intake Total 1320 ml 100 ml Output Total 800 ml 1700 ml Balance 520 ml -1600 ml Intake Oral 720 ml IV Total 600 ml 100 ml Output Urine Total 800 ml 1700 ml # Voids 7 Laboratory Tests 07/13/18 06:35: White Blood Count 3.7L, Red Blood Count 3.50L, Hemoglobin 10.8L, Hematocrit 32.4L, Mean Corpuscular Volume 93, Mean Corpuscular Hemoglobin 31.0, Mean Corpuscular Hemoglobin Concent 33.5, Red Cell Distribution Width 12.6, Platelet Count 77L, Mean Platelet Volume 7.6, Neutrophils (%) (Auto) , Lymphocytes (%) ( Auto) , Monocytes (%) (Auto) , Eosinophils (%) (Auto) , Basophils (%) (Auto) , Differential Total Cells Counted 100, Neutrophils % (Manual) 59, Lymphocytes % ( Manual) 31, Monocytes % (Manual) 6, Eosinophils % (Manual) 4H, Basophils % ( Manual) 0, Band Neutrophils 0, Platelet Estimate DecreasedL, Platelet Morphology Normal, Ovalocytes 1+, Schistocytes 1+, Sodium Level 137, Potassium Level 3.9, Chloride Level 103, Carbon Dioxide Level 31, Anion Gap 4L, Blood Urea Nitrogen 9, Creatinine 0.6, Estimat Glomerular Filtration Rate , Glucose Level 89, Calcium Level 8.4L, Magnesium Level 1.9 Height (Feet): 5 Height (Inches): 5.00 Weight (Pounds): 105 Objective CV RR Lungs CTA Abd SNT. BS + E No CCE Terri Walton MD Jul 13, 2018 15:42
[2018-07-13 16:00] VITALS: BP 130/62
--- NOTE | 2018-07-13 16:00 | NUR ---
NURSE NOTES: Notified Dr. Rivera patient has not had BM despite lactulose and MOM given. Patient declined suppository or enema. MD stated patient to DC when he passes BM.
--- NOTE | 2018-07-13 19:30 | NUR ---
HAND-OFF: Report given to LONDON Jade.
--- NOTE | 2018-07-13 19:31 | NUR ---
NURSE NOTES: Received patient in no apparent distress noted. A&OX4. NC 2L is on, no s/s of respiratory distress noted. IV site patent and intact. Patient mentioned that had large bowel movement today. Bed in lowest position. Call light within reach. Will continue to monitor.
[2018-07-13 20:00] VITALS: BP 118/67
--- NOTE | 2018-07-13 21:07 | Pulmonology Progress Note ---
Assessment/Plan Assessment/Plan Pulmonary Progress Note Assessment/Plan IMPRESSION: 1. Chronic obstructive pulmonary disease with acute exacerbation. 2. Shortness of breath. 3. Respiratory insufficiency. 4. Advanced age. 5. Possible mild bronchitis. 6. Hypercholesterolemia. 7. Hypertension. 8. Constipation. PLAN care as is monitor IV solumedrol taper and start prednisone in am respiratory care monitor I/O follow up for change follow up labs for change dispo pending further improvement impression, plan, and exam edited and reviewed in detail care discussed with RN Subjective Allergies: Coded Allergies: No Known Allergies (Unverified , 09/11/15) Subjective care noted and reviewed overall no distress on oxygen Objective Vital Signs Noted Objective GENERAL: A well-developed male, somewhat of advanced age. HEENT: Fairly negative. Extraocular movements are grossly intact. NECK: Supple. LUNGS: With reduced breath sounds overall. occasional wheeze CARDIAC: Normal S1, S2. Regular rate and rhythm without murmurs, rubs, or gallops. ABDOMEN: Soft, nontender, and nondistended. EXTREMITIES: No cyanosis, clubbing, or edema. NEUROLOGIC: Grossly nonfocal. confused reviewed and examined Current Medications Medications (Trade) Dose Ordered Sig/Beverley Route PRN Reason Start Time Stop Time Status Last Admin Dose Admin Albuterol Sulfate (Proventil) 2.5 mg BID PRN HHN Shortness of Breath 07/09/18 03:00 07/14/18 02:59 Albuterol/ Ipratropium (Albuterol/ Ipratropium) 3 ml Q6HRT HHN 07/09/18 07:00 07/14/18 06:59 07/12/18 07:46 Aspirin (Ecotrin) 81 mg DAILY ORAL 07/09/18 09:00 08/08/18 08:59 07/11/18 08:50 Atorvastatin Calcium (Lipitor) 20 mg BEDTIME ORAL 07/09/18 21:00 08/08/18 20:59 07/11/18 21:30 Carvedilol (Coreg) 6.25 mg EVERY 12 HOURS ORAL 07/09/18 09:00 08/08/18 08:59 07/11/18 21:31 Docusate Sodium (Colace) 250 mg TWICE A DAY ORAL 07/09/18 09:00 08/08/18 08:59 07/11/18 17:07 Heparin Sodium (Porcine) (Heparin 5000 units/ml) 5,000 units EVERY 12 HOURS SUBQ 07/09/18 09:00 08/08/18 08:59 Levofloxacin 100 ml @ 100 mls/hr Q24H IVPB 07/09/18 04:30 07/16/18 04:29 07/12/18 04:36 Losartan Potassium (Cozaar) 25 mg DAILY ORAL 07/09/18 09:00 08/08/18 08:59 07/09/18 09:12 Magnesium Oxide (Mag-Ox 400mg) 400 mg BID ORAL 07/09/18 09:00 08/08/18 08:59 07/11/18 17:07 Methylprednisolone Sodium Succinate (Solu-MEDROL) 60 mg DAILY IVP 07/09/18 09:00 08/08/18 08:59 07/11/18 08:50 Pantoprazole (Protonix) 40 mg DAILY ORAL 07/09/18 09:00 08/08/18 08:59 07/11/18 08:50 Potassium Chloride 30 meq/ Sodium Chloride 1,015 ml @ 60 mls/hr [id number] IV 07/09/18 08:00 08/08/18 07:59 07/12/18 04:26 Tamsulosin HCl (Flomax) 0.4 mg BEDTIME ORAL 07/09/18 21:00 08/08/18 20:59 07/11/18 21:30 Subjective ROS Limited/Unobtainable: No Allergies: Coded Allergies: No Known Allergies (Unverified , 09/11/15) Objective Last 24 Hour Vital Signs Date Time Temp Pulse Resp B/P (MAP) Pulse Ox O2 Delivery O2 Flow Rate FiO2 07/13/18 20:22 97 20 85 Nasal Cannula 2.0 28 07/13/18 16:00 98.6 80 18 130/62 (84) 99 07/13/18 12:39 101 20 100 Nasal Cannula 2.0 28 07/13/18 12:31 97 20 98 Nasal Cannula 2.0 28 07/13/18 12:00 98.0 83 17 118/71 (87) 99 07/13/18 09:18 131/65 07/13/18 09:18 106 131/65 07/13/18 09:00 Nasal Cannula 2.0 07/13/18 08:00 97.7 92 18 116/62 (80) 99 07/13/18 08:00 98.6 92 17 116/62 (80) 99 07/13/18 07:45 106 20 100 Nasal Cannula 2.0 28 07/13/18 07:38 Nasal Cannula 2.0 28 07/13/18 07:38 105 20 98 Nasal Cannula 2.0 28 07/13/18 07:38 98 Nasal Cannula 2.0 28 07/13/18 04:00 97.0 93 18 131/65 (87) 98 07/13/18 01:35 94 18 99 Nasal Cannula 2.0 28 07/13/18 01:25 90 18 96 Nasal Cannula 2.0 28 07/13/18 00:00 97.7 83 18 134/74 (94) 98 07/12/18 21:16 99 141/75 Intake and Output 07/12/18 07/13/18 19:00 07:00 Intake Total 1320 ml 100 ml Output Total 800 ml 1700 ml Balance 520 ml -1600 ml Intake Oral 720 ml IV Total 600 ml 100 ml Output Urine Total 800 ml 1700 ml # Voids 7 Laboratory Tests 07/13/18 06:35: White Blood Count 3.7L, Red Blood Count 3.50L, Hemoglobin 10.8L, Hematocrit 32.4L, Mean Corpuscular Volume 93, Mean Corpuscular Hemoglobin 31.0, Mean Corpuscular Hemoglobin Concent 33.5, Red Cell Distribution Width 12.6, Platelet Count 77L, Mean Platelet Volume 7.6, Neutrophils (%) (Auto) , Lymphocytes (%) ( Auto) , Monocytes (%) (Auto) , Eosinophils (%) (Auto) , Basophils (%) (Auto) , Differential Total Cells Counted 100, Neutrophils % (Manual) 59, Lymphocytes % ( Manual) 31, Monocytes % (Manual) 6, Eosinophils % (Manual) 4H, Basophils % ( Manual) 0, Band Neutrophils 0, Platelet Estimate DecreasedL, Platelet Morphology Normal, Ovalocytes 1+, Schistocytes 1+, Sodium Level 137, Potassium Level 3.9, Chloride Level 103, Carbon Dioxide Level 31, Anion Gap 4L, Blood Urea Nitrogen 9, Creatinine 0.6, Estimat Glomerular Filtration Rate , Glucose Level 89, Calcium Level 8.4L, Magnesium Level 1.9 Current Medications Medications (Trade) Dose Ordered Sig/Beverley Route PRN Reason Start Time Stop Time Status Last Admin Dose Admin Albuterol Sulfate (Proventil) 2.5 mg BID PRN HHN Shortness of Breath 07/09/18 03:00 07/14/18 02:59 Albuterol/ Ipratropium (Albuterol/ Ipratropium) 3 ml Q6HRT HHN 07/09/18 07:00 07/14/18 06:59 07/13/18 20:22 Aspirin (Ecotrin) 81 mg DAILY ORAL 07/09/18 09:00 08/08/18 08:59 07/13/18 09:18 Atorvastatin Calcium (Lipitor) 20 mg BEDTIME ORAL 07/09/18 21:00 08/08/18 20:59 07/12/18 21:15 Carvedilol (Coreg) 6.25 mg EVERY 12 HOURS ORAL 07/09/18 09:00 08/08/18 08:59 07/13/18 09:18 Docusate Sodium (Colace) 250 mg TWICE A DAY ORAL 07/09/18 09:00 08/08/18 08:59 07/13/18 18:53 Heparin Sodium (Porcine) (Heparin 5000 units/ml) 5,000 units EVERY 12 HOURS SUBQ 07/09/18 09:00 08/08/18 08:59 Lactulose (Cephulac) 30 gm DAILYPRN PRN ORAL Constipation 07/12/18 17:30 08/11/18 17:29 07/13/18 09:18 Levofloxacin 100 ml @ 100 mls/hr Q24H IVPB 07/09/18 04:30 07/16/18 04:29 07/13/18 04:27 Losartan Potassium (Cozaar) 25 mg DAILY ORAL 07/09/18 09:00 08/08/18 08:59 07/13/18 09:18 Magnesium Hydroxide (Mom) 30 ml DAILYPRN PRN ORAL Constipation 07/12/18 17:30 08/11/18 17:29 07/13/18 13:47 Magnesium Oxide (Mag-Ox 400mg) 400 mg BID ORAL 07/09/18 09:00 08/08/18 08:59 07/13/18 18:53 Pantoprazole (Protonix) 40 mg DAILY ORAL 07/09/18 09:00 08/08/18 08:59 07/13/18 09:18 Prednisone (predniSONE) 30 mg DAILY ORAL 07/14/18 09:00 08/13/18 08:59 Sennosides (Senokot) 8.6 mg BIDPRN PRN ORAL Constipation 07/12/18 17:30 08/11/18 17:29 Tamsulosin HCl (Flomax) 0.4 mg BEDTIME ORAL 07/09/18 21:00 08/08/18 20:59 07/12/18 21:15 Rohit Webster MD Jul 13, 2018 21:07
[2018-07-13] MEDS: Tamsulosin 0.4mg cap ORAL SCH (21:31)
[2018-07-13] MEDS: Atorvastatin 20mg tab ORAL SCH (21:31)
[2018-07-14] VITALS: BP 127/66
--- NOTE | 2018-07-14 00:21 | NUR ---
NURSE NOTES: IV was pulled out accidently by patient. Patient refused to insert new IV.
[2018-07-14] MEDS: Albuterol/Ipratropium 3ml neb HHN SCH (01:29)
[2018-07-14 04:00] VITALS: BP 118/68
--- NOTE | 2018-07-14 07:14 | NUR ---
HAND-OFF: Report given to Damaris CALLAHAN.
--- NOTE | 2018-07-14 07:25 | NUR ---
NURSE NOTES: Received patient in bed pain, patient awake, alert, oriented, x4, no sign respiratory distress . NC 2L is on, Patient had 1 BM today, on fall precaution, Bed in lowest position. Call light within reach. Will continue to monitor brandi
[2018-07-14 08:00] VITALS: BP 96/54
[2018-07-14] MEDS: Aspirin EC 81mg tab ORAL SCH (08:22)
[2018-07-14] MEDS: Docusate 250mg cap ORAL SCH (08:22)
[2018-07-14] MEDS: Losartan 25mg tab ORAL SCH (08:23)
[2018-07-14] MEDS: Carvedilol 6.25mg Tab ORAL SCH (08:23)
[2018-07-14] MEDS: Magnesium Oxide 400mg tab ORAL SCH (08:23)
[2018-07-14] MEDS: Heparin 5000 units/ml inj SUBQ SCH (08:24)
--- NOTE | 2018-07-14 11:41 | Pulmonology Progress Note ---
Assessment/Plan Assessment/Plan IMPRESSION: 1. Chronic obstructive pulmonary disease with acute exacerbation. 2. Shortness of breath. 3. Respiratory insufficiency. 4. Advanced age. 5. Possible mild bronchitis. 6. Hypercholesterolemia. 7. Hypertension. 8. Constipation. PLAN care as is monitor PO prednisone respiratory care monitor I/O follow up for change follow up labs for change dc planning impression, plan, and exam edited and reviewed in detail care discussed with RN Subjective ROS Limited/Unobtainable: Yes Allergies: Coded Allergies: No Known Allergies (Unverified , 09/11/15) Subjective care noted and reviewed overall no distress on oxygen and appears stable Objective Last 24 Hour Vital Signs Date Time Temp Pulse Resp B/P (MAP) Pulse Ox O2 Delivery O2 Flow Rate FiO2 07/14/18 08:40 Nasal Cannula 2.0 07/14/18 08:33 98 Nasal Cannula 2.0 28 07/14/18 08:33 Nasal Cannula 2.0 28 07/14/18 08:23 118/68 07/14/18 08:23 78 118/68 07/14/18 08:00 97.5 110 18 96/54 (68) 95 07/14/18 05:52 78 18 Nasal Cannula 2.0 28 07/14/18 04:00 97.7 88 18 118/68 (85) 98 07/14/18 01:41 77 18 99 Nasal Cannula 2.0 28 07/14/18 01:30 82 20 97 Nasal Cannula 2.0 28 07/14/18 00:00 97.8 84 18 127/66 (86) 99 07/13/18 21:31 97 118/67 07/13/18 21:00 Nasal Cannula 2.0 07/13/18 20:32 87 18 100 Nasal Cannula 2.0 28 07/13/18 20:32 97 Nasal Cannula 2.0 28 07/13/18 20:32 Nasal Cannula 2.0 28 07/13/18 20:22 85 20 97 Nasal Cannula 2.0 28 07/13/18 20:00 97.6 86 18 118/67 (84) 98 07/13/18 16:00 98.6 80 18 130/62 (84) 99 07/13/18 12:39 101 20 100 Nasal Cannula 2.0 28 07/13/18 12:31 97 20 98 Nasal Cannula 2.0 28 07/13/18 12:00 98.0 83 17 118/71 (87) 99 Intake and Output 07/13/18 07/14/18 19:00 07:00 Intake Total 1000 ml Balance 1000 ml Other 1000 ml # Voids 2 Objective GENERAL: A well-developed male, somewhat of advanced age. HEENT: Fairly negative. Extraocular movements are grossly intact. NECK: Supple. LUNGS: With reduced breath sounds overall. occasional wheeze CARDIAC: Normal S1, S2. Regular rate and rhythm without murmurs, rubs, or gallops. ABDOMEN: Soft, nontender, and nondistended. EXTREMITIES: No cyanosis, clubbing, or edema. NEUROLOGIC: Grossly nonfocal. confused reviewed and examined Current Medications Medications (Trade) Dose Ordered Sig/Beverley Route PRN Reason Start Time Stop Time Status Last Admin Dose Admin Aspirin (Ecotrin) 81 mg DAILY ORAL 07/09/18 09:00 08/08/18 08:59 07/14/18 08:22 Atorvastatin Calcium (Lipitor) 20 mg BEDTIME ORAL 07/09/18 21:00 08/08/18 20:59 07/13/18 21:31 Carvedilol (Coreg) 6.25 mg EVERY 12 HOURS ORAL 07/09/18 09:00 08/08/18 08:59 07/14/18 08:23 Docusate Sodium (Colace) 250 mg TWICE A DAY ORAL 07/09/18 09:00 08/08/18 08:59 07/14/18 08:22 Heparin Sodium (Porcine) (Heparin 5000 units/ml) 5,000 units EVERY 12 HOURS SUBQ 07/09/18 09:00 08/08/18 08:59 Lactulose (Cephulac) 30 gm DAILYPRN PRN ORAL Constipation 07/12/18 17:30 08/11/18 17:29 07/13/18 09:18 Levofloxacin 100 ml @ 100 mls/hr Q24H IVPB 07/09/18 04:30 07/16/18 04:29 07/13/18 04:27 Losartan Potassium (Cozaar) 25 mg DAILY ORAL 07/09/18 09:00 08/08/18 08:59 07/14/18 08:23 Magnesium Hydroxide (Mom) 30 ml DAILYPRN PRN ORAL Constipation 07/12/18 17:30 08/11/18 17:29 07/13/18 13:47 Magnesium Oxide (Mag-Ox 400mg) 400 mg BID ORAL 07/09/18 09:00 08/08/18 08:59 07/14/18 08:23 Pantoprazole (Protonix) 40 mg DAILY ORAL 07/09/18 09:00 08/08/18 08:59 07/14/18 08:22 Prednisone (predniSONE) 30 mg DAILY ORAL 07/14/18 09:00 08/13/18 08:59 07/14/18 08:22 Sennosides (Senokot) 8.6 mg BIDPRN PRN ORAL Constipation 07/12/18 17:30 08/11/18 17:29 Tamsulosin HCl (Flomax) 0.4 mg BEDTIME ORAL 07/09/18 21:00 08/08/18 20:59 07/13/18 21:31 Joey Jameson MD Jul 14, 2018 11:41
[2018-07-14 12:00] VITALS: BP 134/69
--- NOTE | 2018-07-14 12:00 | General Progress Note ---
Assessment/Plan Assessment/Plan COPD Exacerbation - see orders. Pulm. following. Improved. DC to B+c Subjective Allergies: Coded Allergies: No Known Allergies (Unverified , 09/11/15) Subjective Still SOB. Constipated. Objective Last 24 Hour Vital Signs Date Time Temp Pulse Resp B/P (MAP) Pulse Ox O2 Delivery O2 Flow Rate FiO2 07/14/18 08:40 Nasal Cannula 2.0 07/14/18 08:33 98 Nasal Cannula 2.0 28 07/14/18 08:33 Nasal Cannula 2.0 28 07/14/18 08:23 118/68 07/14/18 08:23 78 118/68 07/14/18 08:00 97.5 110 18 96/54 (68) 95 07/14/18 05:52 78 18 Nasal Cannula 2.0 28 07/14/18 04:00 97.7 88 18 118/68 (85) 98 07/14/18 01:41 77 18 99 Nasal Cannula 2.0 28 07/14/18 01:30 82 20 97 Nasal Cannula 2.0 28 07/14/18 00:00 97.8 84 18 127/66 (86) 99 07/13/18 21:31 97 118/67 07/13/18 21:00 Nasal Cannula 2.0 07/13/18 20:32 87 18 100 Nasal Cannula 2.0 28 07/13/18 20:32 97 Nasal Cannula 2.0 28 07/13/18 20:32 Nasal Cannula 2.0 28 07/13/18 20:22 85 20 97 Nasal Cannula 2.0 28 07/13/18 20:00 97.6 86 18 118/67 (84) 98 07/13/18 16:00 98.6 80 18 130/62 (84) 99 07/13/18 12:39 101 20 100 Nasal Cannula 2.0 28 07/13/18 12:31 97 20 98 Nasal Cannula 2.0 28 07/13/18 12:00 98.0 83 17 118/71 (87) 99 Intake and Output 07/13/18 07/14/18 18:59 06:59 Intake Total 1000 ml Balance 1000 ml Other 1000 ml # Voids 2 Height (Feet): 5 Height (Inches): 5.00 Weight (Pounds): 105 Objective CV RR Lungs CTA Abd SNT. BS + E No CCE Shechter,Pagiel MD Jul 14, 2018 12:00
[2018-07-14] MEDS ORDERED: Tubing IV Secondary IV ONE (13:59)
[2018-07-14] MEDS ORDERED: NS 275ml ONE (13:59)
--- NOTE | 2018-07-14 14:39 | NUR ---
nurse notes discharge patient back to [facility] obtained, patient aware regarding plan of care, report given to LONDON Cummings [id number] Discharge in stable condition with belongings taken accompanied by ambulance personnel,report given to ambulance personnel, discharge via ambulance [facility] [facility]
--- NOTE | 2018-07-14 16:22 | Cardiology Report ---
APPROVED REPORT EKG Measurement Heart [id number] CT 130P87 [id number] Sinus tachycardia with occasional premature ventricular complexes Left axis deviation Right bundle branch block/LASH Bifascicular block Abnormal ECG
--- NOTE | 2018-07-16 13:13 | Discharge Summary ---
Discharge Summary Discharge Summary _ DATE OF ADMISSION: 07/09/2018 DATE OF DISCHARGE: 07/14/2018 DISCHARGED BY: Dr. Walton REASON FOR ADMISSION: 77 years old male with past medical history of extensive lung emphysema, cardiomyopathy, anxiety disorder, presented to emergency department complaining of shortness of breath. Upon evaluation vital signs revealed elevated blood pressure 164/95. Patient required supplemental oxygen to reach appropriate pulse oximetry. Troponin was negative, EKG revealed normal sinus rhythm with left bundle branch block. Chest x-ray revealed evidence of COPD, but no acute cardiopulmonary pathology. Laboratory workup revealed no leukocytosis , stable hemoglobin and hematocrit, stable electrolytes. Urinalysis revealed +2 protein. Patient admitted for management of COPD exacerbation. CONSULTANTS: pulmonary [facility] COURSE: Patient admitted. Pulmonology consult was requested. Supplemental oxygen provided as needed to keep pulse oximetry above 92%. Pulmonary toilet provided [id number] and as needed. Patient started on IV steroids with gradually tapering down and changed to oral prednisone prior to discharge. Patient started on empiric antibiotic. Antitussive provided as needed. Blood pressure was managed with beta-jeremy and angiotensin receptor jeremy and remained stable. Antiplatelet therapy with aspirin and statin were continued. DVT prophylaxis provided. Bowel regimen instituted. Patietn had bowel movement. Flomax continued. GI prophylaxis provided. Supportive care provided. Patient clinically stabilized and was [facility] FINAL DIAGNOSES: Acute COPD exacerbation Extensive lung emphysema Possible mild bronchitis Hypertension Cardiomyopathy Hypercholesterolemia Anxiety disorder Constipation DISCHARGE MEDICATIONS: See Medication Reconciliation list. DISCHARGE INSTRUCTIONS: Patient was discharged to [facility]. Follow up with medical doctor at the facility. I have been assigned to dictate discharge summary for this account. I was not involved in the patient's management. Pretty Funes NP Jul 16, 2018 13:13
== END 2018-07-14 14:00 | DRG 191 ==
LOC: EDBD 22:31 → EMR 22:50 → 4E 07-09 00:23 → EDBEDREQ 07-09 01:08 → 4E 07-09 01:48
DX: J44.1 Chronic obstructive pulmonary disease with (acute) exacerbation (principal); I42.9 Cardiomyopathy, unspecified; F41.9 Anxiety disorder, unspecified; J40 Bronchitis, not specified as acute or chronic; I10 Essential (primary) hypertension; E78.00 Pure hypercholesterolemia, unspecified; K59.00 Constipation, unspecified
CPT/HCPCS: 36415; 71045; 80048; 80053; 81001; 82248; 83735; 84484; 85007; 85025; 87081; 93005; 94640; 94664; 94760; 96361; 96374; 99285; J7620

== ENCOUNTER 2019-03-31 23:23 | Inpatient (IN) | payer MEDICARE, MEDICAID ==
[~2019-03-31] VITALS: Ht 162.6 cm; Wt 49.0 kg
[~2019-03-31 23:23] MED LIST changes: +ALBUTEROL2.5 MG/3 M INH; +ASPIR 8181 MG ORAL; +ATORVASTATIN CA20 MG ORAL; +CARVEDILOL6.25 MG ORAL; +DOCUSATE SODIU250 MG ORAL; +LOSARTAN POTASS25 MG ORAL; +PANTOPRAZOLE SO40 MG ORAL; +TAMSULOSIN HCL0.4 MG ORAL
[2019-03-31] MEDS ORDERED: MICARDIS20 MG ORAL (23:31)
--- NOTE | 2019-03-31 23:36 | Emergency Room Report ---
History of Present Illness General Chief Complaint: General Complaint Source: Patient Present Illness HPI 78-year-old male history of COPD hypertension presents with right arm weakness, and shortness of breath, right arm weakness started 2 days prior to arrival, shortness of breath started this afternoon, aggravated by not having his nebulizer, alleviated with his nebulizer, severity is severe, constant, no fever /chills, he does endorse some shortness of breath, and cough, patient presents for both right arm weakness as well as shortness of breath. Allergies: Coded Allergies: No Known Allergies (Unverified , 09/11/15) Patient History Past Medical History: see triage record Reviewed Nursing Documentation: PMH: Agreed; PSxH: Agreed Nursing Documentation-PMH Past Medical History: No History, Except For Hx Hypertension: Yes Hx COPD: Yes Hx Cancer: No Hx Gastrointestinal Problems: No Hx Neurological Problems: No Review of Systems All Other Systems: negative except mentioned in HPI Physical Exam Vital Signs Date Time Temp Pulse Resp B/P (MAP) Pulse Ox O2 Delivery O2 Flow Rate FiO2 03/31/19 23:24 98.4 133 14 126/61 (82) 94 Nasal Cannula 2.0 Sp02 EP Interpretation: reviewed, normal General Appearance: alert, moderate distress Head: normocephalic, atraumatic Eyes: bilateral eye PERRL, bilateral eye EOMI ENT: uvula midline, moist mucus membranes Neck: supple, thyroid normal, supple/symm/no masses Respiratory: decreased breath sounds, accessory muscle use, wheezing Cardiovascular #1: normal peripheral pulses, no edema, no gallop, no murmur, tachycardia Gastrointestinal: non tender, soft, no guarding, no rebound Musculoskeletal: normal inspection Neurologic: alert, oriented x3, other - 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 During the course of the patient's stay, I spent a considerable amount of time at the bedside performing serial re-evaluations of the patient's hemodynamic and clinical status because of the recognized potential threat to life or limb in this condition. I then had a chance to review not only all of the available current laboratory and radiographic studies obtained today, but I also reviewed old records available to me at the time. Additionally, any ancillary information available including bridge opener records were reviewed. Sequential vital signs were obtained. Critical Care time of 33 minutes was performed exclusive of billable procedures. Medical Decision Making Diagnostic Impression: Primary Impression: COPD exacerbation Additional Impressions: Right arm weakness Brain mass ER Course 78-year-old male presents with right arm weakness x2 days, no aggravating relieving factors, constant, patient is outside the stroke with no, will obtain CT brain, will also give patient aspirin. She also hypoxic, tachycardic as well as tachypnea, patient with co-commitment COPD exacerbation, will provide duo nebs Reeval 1:30 AM, patient has significantly improved, no longer using accessory muscle use, steroids are working, antibiotics are working Patient admitted to Dr. 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 patient already receive dexamethasone Patient will receive an MRI as an inpatient, and possible referral/transfer in the morning Laboratory Tests Test 03/31/19 23:45 03/31/19 23:55 White Blood Count 15.1 K/UL (4.8-10.8) H Red Blood Count 4.56 M/UL (4.70-6.10) L Hemoglobin 13.5 G/DL (14.2-18.0) L Hematocrit 39.8 % (42.0-52.0) L Mean Corpuscular Volume 87 FL (80-99) Mean Corpuscular Hemoglobin 29.5 PG (27.0-31.0) Mean Corpuscular Hemoglobin Concent 33.9 G/DL (32.0-36.0) Red Cell Distribution Width 11.5 % (11.6-14.8) L Platelet Count 206 K/UL (150-450) Mean Platelet Volume 5.8 FL (6.5-10.1) L Neutrophils (%) (Auto) 82.1 % (45.0-75.0) H Lymphocytes (%) (Auto) 8.9 % (20.0-45.0) L Monocytes (%) (Auto) 7.3 % (1.0-10.0) Eosinophils (%) (Auto) 1.0 % (0.0-3.0) Basophils (%) (Auto) 0.7 % (0.0-2.0) Sodium Level 132 MMOL/L (136-145) L Potassium Level 4.4 MMOL/L (3.5-5.1) Chloride Level 95 MMOL/L (98-107) L Carbon Dioxide Level 30 MMOL/L (21-32) Anion Gap 7 mmol/L (5-15) Blood Urea Nitrogen 9 mg/dL (7-18) Creatinine 0.7 MG/DL (0.55-1.30) Estimate Glomerular Filtration Rate mL/min (>60) Glucose Level 93 MG/DL (74-106) Lactic Acid Level 1.70 mmol/L (0.4-2.0) Calcium Level 9.3 MG/DL (8.5-10.1) Magnesium Level 1.6 MG/DL (1.8-2.4) L Total Bilirubin 1.5 MG/DL (0.2-1.0) H Direct Bilirubin 0.5 MG/DL (0.0-0.3) H Aspartate Amino Transferase (AST) 21 U/L (15-37) Alanine Aminotransferase (ALT) 17 U/L (12-78) Alkaline Phosphatase 105 U/L (46-116) Troponin I 0.000 ng/mL (0.000-0.056) Pro-B-Type Natriuretic Peptide 147 pg/mL (0-125) H Total Protein 7.0 G/DL (6.4-8.2) Albumin 3.8 G/DL (3.4-5.0) Globulin 3.2 g/dL Albumin/Globulin Ratio 1.2 (1.0-2.7) Lipase 61 U/L (73-393) L Arterial Blood pH 7.408 (7.350-7.450) Arterial Blood Partial Pressure CO2 42.5 mmHg (35.0-45.0) Arterial Blood Partial Pressure O2 63.3 mmHg (75.0-100.0) L Arterial Blood HCO3 26.2 mmol/L (22.0-26.0) H Arterial Blood Oxygen Saturation 91.2 % (95-100) L Arterial Blood Base Excess 1.3 (-2-2) Justin Test Positive EKG Diagnostic Results EKG Time: 00:33 EP Interpretation: sinustachycardia, rate 124, QTc 451, no acute ST elevations , left axis adenike Rhythm Strip Diag. Results Rhythm Strip Time: 23:37 EP Interpretation: yes Rate: 125 Rhythm: other - sinus tachycardia Chest X-Ray Diagnostic Results Chest X-Ray Diagnostic Results : Chest X-Ray Ordered: Yes # of Views/Limited/Complete: 1 View Indication: Shortness of Breath EP Interpretation: Yes Interpretation: no consolidation, no effusion, no pneumothorax, no acute cardiopulmonary disease Impression: No acute disease Electronically Signed by: Howie Tran MD CT/MRI/US Diagnostic Results CT/MRI/US Diagnostic Results : Impression Preliminary Findings Only See Final Report For Complete Findings CT HEAD Without Contrast: No evidence of acute transcortical infarct or acute intracranial hemorrhage. There is a 2.4 cm hypodense mass in the posterior left frontal lobe with surrounding vasogenic edema suggesting primary malignancy. This finding results in effacement of the left lateral ventricle with an approximate 3 mm rightward midline shift. MRI of the brain with IV contrast is recommended for further evaluation. Radiologist: Michael Jordan MD Study ready at 02:10 and initial results transmitted at 02:16 *This report constitutes a preliminary interpretation only. Non-acute findings felt to be unrelated to the clinical presentation may not be discussed in this report. The study will be interpreted and a final report will be generated by the local Radiologist the following shift. To reach the hospital radiology department call [phone]. Last Vital Signs Date Time Temp Pulse Resp B/P (MAP) Pulse Ox O2 Delivery O2 Flow Rate FiO2 03/31/19 23:24 98.4 133 14 126/61 (82) 94 Nasal Cannula 2.0 Disposition: ADMITTED INPATIENT Condition: Serious Howie Tran MD Mar 31, 2019 23:36
[2019-03-31] MEDS ORDERED: Cefepime HCl 2 GM in NS 110 ML IV SCH (23:45)
[2019-03-31] MEDS ORDERED: Dexamethasone 4mg/ml vial IVP ONE (23:45)
[2019-03-31] MEDS ORDERED: Vancomycin 1 GM in NS 275 ML IV ONE (23:45)
--- NOTE | 2019-03-31 23:45 | NUR ---
ED Nurse Note: Recieved pt BIBA from SNF with c/o SOB, pt ahs chronic COPD and on continuous oxygen, noted this after noon breathing with more effort and pt has cough, pt also c/o having intermittent numbness to right arm, pt denies cp, immediately gowned and palced on cardiac monitoring, o2 sat=88% on ra and 90-92% on o2 2l n/c, iv line immediately placed and labs drawn, will resume medication orders and prepare for admission.
[2019-04-01] VITALS (18 sets, daily range): BP systolic 99–156; BP diastolic 53–90
[2019-04-01 00:07] LABS: BASOPHILS % (AUTO) 0.7 % (0.0-2.0); HEMATOCRIT 39.8 % (42.0-52.0); HEMOGLOBIN 13.5 G/DL (14.2-18.0); LYMPHOCYTES % (AUTO) 8.9 % (20.0-45.0); MEAN CORPUSCULAR VOLUME 87 FL (80-99); MONOCYTES % (AUTO) 7.3 % (1.0-10.0); NEUTROPHILS % (AUTO) 82.1 % (45.0-75.0); PLATELET COUNT 206 K/UL (150-450); RED BLOOD COUNT 4.56 M/UL (4.70-6.10); RED CELL DISTRIBUTION WIDTH 11.5 % (11.6-14.8); WHITE BLOOD COUNT 15.1 K/UL (4.8-10.8)
[2019-04-01] MEDS: Albuterol ud Inhalation HHN SCH ×3 (00:14→00:33)
[2019-04-01] MEDS: Ipratropium 0.02% Inh Soln 2.5ml UD HHN SCH ×3 (00:14→00:33)
[2019-04-01 00:18] LABS: ANION GAP 7 mmol/L (5-15); BLOOD UREA NITROGEN 9 mg/dL (7-18); CALCIUM 9.3 MG/DL (8.5-10.1); CARBON DIOXIDE 30 MMOL/L (21-32); CHLORIDE 95 MMOL/L (98-107); CREATININE 0.7 MG/DL (0.55-1.30); POTASSIUM 4.4 MMOL/L (3.5-5.1); SODIUM 132 MMOL/L (136-145)
[2019-04-01 00:35] LABS: ALANINE AMINOTRANSFERASE 17 U/L (12-78); ALBUMIN 3.8 G/DL (3.4-5.0); ALBUMIN/GLOBULIN RATIO 1.2 (1.0-2.7); ALKALINE PHOSPHATASE 105 U/L (46-116); ASPARTATE AMINO TRANSFERASE 21 U/L (15-37); BILIRUBIN,TOTAL 1.5 MG/DL (0.2-1.0)
[2019-04-01 00:39] LABS: BILIRUBIN,DIRECT 0.5 MG/DL (0.0-0.3)
--- NOTE | 2019-04-01 01:15 | NUR ---
ED Nurse Note: Pt returned from imaging, replaced on monitoring, completing IV antibiotics, tolerating well, no s/s of adverse reaction, denies CP, remains with mild SOB abd tachycardia at rate of 116, md is aware, pt being prepared for hospital admission.
--- NOTE | 2019-04-01 02:17 | Diagnostic Imaging Report ---
Indication: Headache Technique: Contiguous 5 mm thick transaxial imaging of the head obtained in a Siemens Sensation [address] scanner. Soft tissue and bone windows generated. Automatic Exposure Control was utilized. Total Dose length Product (DLP): [address] Dose Index Volume (CTDIvol): 74 mGy Comparison: none Findings: There is a moderate degree of vasogenic edema within the left parietal frontal lobe with associated regional sulcal effacement and mass effect on the the left lateral ventricle which is slightly depressed. The edema may be on the basis of a underlying low-density lesion approximately 2.5 cm in size, which may represent tumor or infection/cerebritis. Further evaluation with gadolinium-enhanced MRI may be of benefit and is recommended. Mild to moderate generalized atrophy of the brain demonstrated with involvement of the cerebrum and cerebellum. The basal cisterns appear normal. There is no evidence of hydrocephalus. There is no evidence of acute intracranial hemorrhage. There is opacification of the right maxillary sinus only partially visualized on this study. Some evidence to indicate this may be on the basis of previous trauma. Fluid retention cyst partially seen in the left maxillary sinus. IMPRESSION: A moderate degree of vasogenic edema within the left posterior frontal and parietal lobe. Suspected 2.5 cm hypodensity at the central aspect of the edema which may represent tumor, abscess or other pathology such as an old hematoma. Further evaluation with gadolinium-enhanced MRI is recommended. Sinus disease The CT scanner at [facility] is accredited by the [employer] and the scans are performed using dose optimization techniques as appropriate to a performed exam including Automatic Exposure control.
--- NOTE | 2019-04-01 03:20 | NUR ---
ED Nurse Note: Pt has room for hospital admisisonanisha called to floor nurse, pt in bed awake, alert and oriented x 4, pt breathing pattern is with less effort, o2 sat=99% on 2l n/c, pt states he feels much better, denies any pain, swabs collected and sent, pt being taken to floor bed via gurney with norman rn under acls protocols.
--- NOTE | 2019-04-01 03:45 | NUR ---
NURSE NOTES: Received report from ED LONDON Pryor. Patient was transferred from ED to tele via gurney without any incident. Patient is awake, lying in semi torres's; resting comfortably. A/Ox4. Able to make needs known but with assistance. Denies pain at this time. No signs of distress noted. Patient was put on tele box, ST BBB on the monitor, 107 bpm. Checked IV site and flushed. No erythema, bleeding or infiltration noted. Body assessment done with no skin issues. Belongings list checked with transferring RN. Bed at lowest position, brakes on, siderailsx3. Call light within reached. Will continue to monitor. Addendum: 04/01/19 at 0458 by Mariella Dockery RN Vital signs stable T=97.8F, TS=481, RR=24, CE=367/56, O2 sat 94% with oxygen via NC @ 2LPM.
--- NOTE | 2019-04-01 04:15 | NUR ---
NURSE NOTES: Paged Dr. Walton for admitting orders. Awaiting for callback.
--- NOTE | 2019-04-01 04:45 | NUR ---
NURSE NOTES: Paged Dr. Walton for admitting orders. Awaiting for callback.
--- NOTE | 2019-04-01 06:20 | NUR ---
NURSE NOTES: Received admitting orders from Dr Walton. Noted and carried out.
[2019-04-01] MEDS ORDERED: Albuterol/Ipratropium 3ml neb HHN PRN (06:30)
[2019-04-01] MEDS ORDERED: HYDROcodone/Acetamin 5/325 tab ORAL PRN ×2 (06:45→09:42)
[2019-04-01] MEDS ORDERED: Albuterol ud Inhalation HHN PRN ×2 (06:45→09:41)
--- NOTE | 2019-04-01 07:30 | NUR ---
HAND-OFF: Report given to LONDON Scruggs. Plan of care endorsed.
--- NOTE | 2019-04-01 07:53 | NUR ---
NURSE NOTES: Received report from LONDON Wolff. Patient in bed resting, no active s/s cardiac, respiratory distress noticed at this time. Patient on 2L oxygen via NC, AOx4, ST w/ BBB with HR 105. IV on left FA 20G, asymptomatic, patent, intact. Endorsed MD aware of Na, Mg level. Bed in lowest position, side rails upx2, call light within reach. Will continue to monitor.
--- NOTE | 2019-04-01 08:04 | NUR ---
NURSE NOTES: Received phone call from Dr. Rivera, transfer patient to ICU d/t positive brain tumor. Order noted, entered, CN made aware.
[2019-04-01] MEDS ORDERED: Wixela 250/50 Inhaler - 60 dose INH SCH (09:00)
[2019-04-01] MEDS ORDERED: Enoxaparin 40mg Inj SUBQ SCH (09:00)
[2019-04-01] MEDS ORDERED: Levofloxacin 500mg tab ORAL SCH (09:00)
[2019-04-01] MEDS ORDERED: Magnesium Oxide 400mg tab ORAL SCH (09:00)
[2019-04-01] MEDS ORDERED: Docusate 250mg cap ORAL SCH (09:00)
[2019-04-01] MEDS ORDERED: Aspirin EC 81mg tab ORAL SCH (09:00)
[2019-04-01] MEDS ORDERED: Solu-MEDROL 40mg Inj IVP SCH (09:00)
[2019-04-01] MEDS ORDERED: Carvedilol 6.25mg Tab ORAL SCH (09:00)
--- NOTE | 2019-04-01 09:35 | NUR ---
TRANSFER TO FLOOR: Patient transferred to ICU , per Dr. Rivera. Report given to LONDON Cintron. Belongings and medications given to patient and LONDON Cintron. Family and or S/O informed of transfer.
--- NOTE | 2019-04-01 09:42 | NUR ---
NURSE NOTES: Report received from Sheba SingletaryRN
--- NOTE | 2019-04-01 10:00 | NUR ---
NURSE NOTES: Patient was transferred to ICU for close monitoring until transfer to [place] for high level of care due to 2.4cm mass left prefrontal lobe with vasogenic edema.Patient on nasal canula at 2LPM with no apparent acute distress. 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 No apparent discharge nor s/s infection.Left forearm 20G running magnesium with no signs infiltration.Abdomen soft and non distended with bowel sounds present in all 4 quadrants.Patient able to self repositioned. Call light within easy reach. Bed locked and in low position.3/4 side rails up and bed alarm on for safety. Will keep the patient on close monitoring. Addendum: 04/01/19 at 1801 by Saida Shaw RN Also noted with fat tissue around neck. soft to touc and denied pain at palpation
--- NOTE | 2019-04-01 10:09 | NUR ---
TRANSFER UPDATE FACE SHEET AND ER NOTES FAXED TO [facility] T: [phone] F: [phone] SPOKE WITH RELIGIOUS WHO CONFIRMED PATIENT WAS ON THE LIST FOR TRANSFER
--- NOTE | 2019-04-01 11:07 | NUR ---
NURSE NOTES: Pt is showing episode of non compliance and does not have any safety awareness. Sitting at the bedside with 2/3 of his buttocks out of bed. Pt refused to sit correctly and educated about fall prevention and risks. 3/4 side rails up.Call light within reach.Bed alarm on and bed in low position and lock.Will keep close monitoring
[2019-04-01] MEDS ORDERED: Cefepime HCl 2 GM in NS 110 ML IV SCH (11:45)
--- NOTE | 2019-04-01 12:07 | NUR ---
NURSE NOTES: Neuro check done with no abnormal finding with all VS within normal range and pupil size and reactivity intact. Bilateral lower extremities strenght + 4 and left arm with moderate strenght and right arm weakness.Will continue to monitor.Call light within easy reach. All needs attended at the patient level of comfort.
--- NOTE | 2019-04-01 13:09 | Diagnostic Imaging Report ---
Indication: Dyspnea Comparison: 07/08/2018 A single view chest radiograph was obtained. Findings: Lungs are hyperexpanded. There is bronchial wall thickening present. No infiltrate is identified. Heart size is normal. Bones are osteopenic. IMPRESSION: COPD/chronic bronchitis.
--- NOTE | 2019-04-01 13:24 | NUR ---
NURSE NOTES: Patient consumed about 75% of his lunch. Tolerated well and no episode of cough noted. Will continue to monitor.Help in self repositioning.Keep HOB elevated at 35 degree to prevent risks aspiration.No signs acute distress noted at this time.Awaiting call from case management for transfer to [place].Kept on close monitoring.Call light within easy reach Addendum: 04/01/19 at 1545 by Saida Shaw RN Patient consumed 25% at lunch
--- NOTE | 2019-04-01 14:15 | NUR ---
NURSE NOTES: Patient able to self repositioned. Remains hemodynamically stable. Denied of any pain and discomfort at this time.Neuro check done with no abnormal finding with all VS within normal range and pupil size and reactivity intact. Bilateral lower extremities strenght + 4 and left arm with moderate strenght and right arm weakness.Will continue to monitor.Call light within easy reach. All needs attended at the patient level of comfort.
[2019-04-01] MEDS ORDERED: CARVEDILOL3.125 MG ORAL (15:08)
[2019-04-01] MEDS ORDERED: IPRAT-ALBUT 0.5-3 ML IH (15:08)
--- NOTE | 2019-04-01 16:04 | NUR ---
NURSE NOTES: Call Dr Russell office to follow up on consult and spoke with his wound specialist Yazmin who stated " Dr Russell not going to see any patient today in the hospital and not sure about tomorrow if he can see the patient" . Dr Rivera made aware.Patient remains hemodynamically stable. Neuro check done with no abnormal finding with all VS within normal range and pupil size and reactivity intact. Call light within easy reach. Will continue to monitor.
[2019-04-01] MEDS: Magnesium Oxide 400mg tab ORAL SCH (17:57)
[2019-04-01] MEDS: Docusate 250mg cap ORAL SCH (17:59)
--- NOTE | 2019-04-01 18:02 | NUR ---
NURSE NOTES: NO SIGNIFICANT CHANGE, ADLs DONE, KEPT CLEAN AND COMFORTABLE.cALL LIGHT WITHIN EASY REACH
--- NOTE | 2019-04-01 19:15 | History and Physical Report ---
DATE OF ADMISSION: 03/31/2019 CHIEF COMPLAINT: Left arm weakness. HISTORY OF PRESENT ILLNESS: This is a 78-year-old male from [facility]. The patient came to the ED complaining of right arm weakness x3 days. He was just discharged from [facility] 3 weeks ago with COPD exacerbation. 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 Currently, the patient is being transferred to [facility] for neurosurgery workup. PAST MEDICAL HISTORY: 1. COPD. 2. Lung emphysema. 3. Benign prostatic hypertrophy. 4. Hypertensive cardiovascular disease. 5. Diastolic heart failure. 6. Huge neck lipoma. HOME MEDICATIONS: Baby aspirin, DuoNeb, Protonix, Coreg, tamsulosin, telmisartan, magnesium oxide, atorvastatin. ALLERGIES: No known drug allergies. FAMILY HISTORY: Unremarkable. SOCIAL HISTORY: The patient was born in [place]. He lives in an assisted living. HABITS: He is nonsmoker, nondrinker. There is no history of illicit drug abuse. REVIEW OF SYSTEMS: HEENT: Hearing and eyesight are normal. ENDOCRINE: No history of diabetes, thyroid, or adrenal problems. NEUROLOGIC: Please refer to history of present illness. PHYSICAL EXAMINATION: GENERAL: This is an elderly male, who is in no acute distress. VITAL SIGNS: Blood pressure 128/69, pulse 95 regular, respirations 20, temperature 97.7 oral, O2 saturation is 95% on 2 liters/minute nasal cannula. HEENT: The head is normocephalic and atraumatic. Pupils are equal, round, and reactive to light and accommodation consensually. NECK: Supple. Trachea midline. There was no lymphadenopathy or thyromegaly. LUNGS: Few bilateral wheezes. HEART: Regular rate and rhythm without rubs, murmurs, or gallops. ABDOMEN: Soft and nontender. Bowel sounds were active. EXTREMITIES: No clubbing, cyanosis, or edema. NEUROLOGICAL: He is alert and oriented x4. Cranial nerves II through XII intact. 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 CBC, white count 15,100, hemoglobin 13.5, and platelet count 206,000. Chemistry, sodium 132, potassium 4.4, magnesium 1.6. Lactic acid 1.7. ASSESSMENT: 1. 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 2. COPD. 3. Lung emphysema. 4. Benign prostatic hypertrophy. 5. Hypertensive cardiovascular disease. 6. Diastolic heart failure. 7. Huge neck lipoma. PLAN: 1. The patient was already placed on transfer list to [facility] neuro ICU. 2. The patient was presented to Dr. Michael Felton, neurosurgery attending and his transfer to [facility] is pending. 3. Continue home medications. 4. Obtain stat Neurology consult here at [place]. 5. ICU care while at [place]. Terri Walton M.D. DR: VANITA JOB#: [id number] CC:
[2019-04-01] MEDS: Wixela 250/50 Inhaler - 60 dose INH SCH (19:37)
--- NOTE | 2019-04-01 19:37 | NUR ---
HAND-OFF: Report given to LONDON Watt.
--- NOTE | 2019-04-01 19:40 | NUR ---
NURSE NOTES: Received report from Nadine. CALLAHAN. Pt is resting on the bed and awake and alert and forgetful. On O23 2L via nasal cannula and SaO2 97-98% noted. Noted on & off dry coughing. IV site intact and no sign of infiltration noted. Denied pain at this time time. Neuro asses was done. On Tele monitor with SR. Pt has multiple skin discoloration on lower legs and scabs on Rt. lower leg. pt has soft lump on the neck area. Placed fall precaution. Will continue to care plan. Addendum: 04/01/19 at 2150 by JESSICA ERVIN RN RN Pt will transfer to [facility] and awaiting the room.
[2019-04-01] MEDS: Cefepime HCl 2 GM in NS 110 ML IV SCH (20:30)
[2019-04-01] MEDS: Carvedilol 6.25mg Tab ORAL SCH (20:31)
[2019-04-01] MEDS ORDERED: Tamsulosin 0.4mg cap ORAL SCH ×2 (21:00)
[2019-04-01] MEDS ORDERED: Atorvastatin 20mg tab ORAL SCH ×2 (21:00)
--- NOTE | 2019-04-01 22:00 | NUR ---
NURSE NOTES: Pt is resting on the bed and awake and alert and forgetful. No sign of acute distress noted. No change of mental status. On O2 2L via nasal cannula and Sao2 98% noted. Placed fall precaution. Will continue to monitor any change of condition.
[2019-04-01] MEDS: Albuterol/Ipratropium 3ml neb HHN PRN (22:28)
[2019-04-02] VITALS (17 sets, daily range): BP systolic 67–147; BP diastolic 40–131
--- NOTE | 2019-04-02 00:12 | NUR ---
NURSE NOTES: MD Walton asking if patient had been transferred, Notified him the [facility] has not contacted us with a bed number. No new orders at this time.
--- NOTE | 2019-04-02 00:30 | NUR ---
NURSE NOTES: Pt is resting on the bed and watching TV. On O2 2L via nasal cannula and SaO2 98% noted. Denies Pain at this time. No sign of acute distress noted. Provided good sleep environment. Placed fall precaution. Will continue to care plan.
--- NOTE | 2019-04-02 02:00 | NUR ---
NURSE NOTES: Pt is resting on the bed and awake and alert. No sign of acute distress noted. Cleaned Pt and provided oral care. on Tele monitor with SR. Denied pain at this time. Placed fall precaution. Will continue to care plan.
--- NOTE | 2019-04-02 03:15 | Consultation ---
DATE OF CONSULTATION: 04/01/2019 PULMONARY CONSULTATION CONSULTING PHYSICIAN: Joey Jameson M.D. REASON FOR ADMISSION: COPD with exacerbation. HISTORY OF PRESENT ILLNESS: The patient is a 78-year-old male, well known to me. The patient presents once again with COPD and shortness of breath. The patient with right arm weakness and shortness of breath. The patient was recently admitted to [facility] with similar complaints. The patient notes symptoms not alleviated with nebulized therapy. The patient's care discussed and reviewed. The patient is now admitted for further care and management. I was called to assist and evaluate further. The patient has what appears to be a brain mass. Care discussed with the attending physician as well as with the ER doctor. ER notes were reviewed. The patient denies any ill contacts. The patient has had no fevers or chills. PAST MEDICAL HISTORY: Notable for COPD, hypertension, left tibial plateau fracture, brain mass, and focal weakness. The patient also has benign prostatic hyperplasia, hypertension, hypertensive heart disease, respiratory symptoms as discussed, hypercholesterolemia, and possible cardiomyopathy. MEDICATIONS: Reviewed. ALLERGIES: Reviewed. REVIEW OF SYSTEMS: Otherwise as above. PHYSICAL EXAMINATION: GENERAL: A well-developed male, in mild shortness of breath. VITAL SIGNS: Blood pressure 122/56, pulse 105, respirations 24, saturations 94% on 2 L, and temperature 97.8. HEENT: Fairly negative. The patient's extraocular movements are grossly intact. Oropharynx moist. NECK: Supple. No adenopathy. The patient has plethora in the neck region. LUNGS: Reduced breath sounds. Occasional wheezes. CARDIAC: Mildly tachycardic. No murmurs, rubs, or gallops. ABDOMEN: Soft, nontender, and nondistended. EXTREMITIES: No cyanosis, clubbing, or edema. NEUROLOGIC: The patient is with focal weakness. Alert. No facial weakness. LABORATORY DATA: Reviewed. White count 15, hematocrit 39, and platelets 206,000. Blood gases 7.4/42/63/26. Chemistries noted. Sodium 132. Liver enzymes slightly elevated. IMPRESSION: 1. Chronic obstructive pulmonary disease with acute exacerbation. 2. Shortness of breath. 3. Respiratory insufficiency. 4. Focal weakness. 5. Brain mass. 6. Neck mass. 7. Hyponatremia of unclear etiology. 8. Leukocytosis, likely steroid-induced. RECOMMENDATIONS: Supportive care. IV antibiotics. IV steroids. Respiratory care. Monitor acid-base exchange. DVT prophylaxis. Diuresis as needed. We will follow clinically for further changes and optimize care and assist with discharge planning. Joey Jameson M.D. DR: SHAKILA JOB#: [id number] CC: NANCY
--- NOTE | 2019-04-02 04:00 | NUR ---
NURSE NOTES: Pt is sleeping on the bed and no sign of acute distress noted. Tolerated well with O2 2L via nasal cannula and SaO2 99% noted. Placed fall precaution; side rails up, applied yellow socks, call light and bedside table within reach. Will continue to monitor any change of condition.
--- NOTE | 2019-04-02 06:00 | NUR ---
NURSE NOTES: Morning care was done. On O2 2L via nasal cannula and SaO2 99% noted. Awaiting room of [facility] fro transfer. Will continue to care plan.
--- NOTE | 2019-04-02 07:17 | NUR ---
HAND-OFF: Report given to LNODON Feng. Pt is resting on the bed no sign of acute distress noted. No change of mental status. Awaiting room of [facility]. Endorsed incoming nurse.
--- NOTE | 2019-04-02 07:20 | NUR ---
NURSE NOTES: Report received from Kavita CALLAHAN. Pt awake, alert and oriented x 3-4, able to make needs known. Pt on classroom monitor, SR. Pt on 2L O2 NC, saturating 100%, denies SOB. LFA 22 G noted and intact. Safety measures in place with bed locked and in lowest position, side rails x3 up and bed alarm on. Pt awaiting transfer to [facility] for further workup of brain mass. Will continue to monitor and continue plan of care.
--- NOTE | 2019-04-02 07:23 | Cardiology Report ---
APPROVED REPORT EKG Measurement Heart [id number] Sinus tachycardia Left axis deviation Pulmonary disease pattern Right bundle branch block with LAFB (Bifascicular block) Abnormal ECG
--- NOTE | 2019-04-02 08:04 | Pulmonology Progress Note ---
Assessment/Plan Assessment/Plan IMPRESSION: 1. Chronic obstructive pulmonary disease with acute exacerbation. 2. Shortness of breath. 3. Respiratory insufficiency. 4. Focal weakness. 5. Brain mass. 6. Neck mass. 7. Hyponatremia of unclear etiology. 8. Leukocytosis, likely steroid-induced. PLAN neuro evaluation IV steroids noted vasogenic edema monitor LOC respiratory care oxygen monitor for change and advise medications/laboratory data/nursing notes/ICU care reviewed in detail note reviewed and edited care discussed with RN and RT ICU time spent 40 minutes Subjective Allergies: Coded Allergies: No Known Allergies (Unverified , 09/11/15) Subjective care noted moved to ICU concerns reviewed imaging reviewed Objective Last 24 Hour Vital Signs Date Time Temp Pulse Resp B/P (MAP) Pulse Ox O2 Delivery O2 Flow Rate FiO2 04/02/19 07:00 97 17 119/66 (83) 98 04/02/19 06:00 78 18 128/40 (69) 98 04/02/19 05:00 80 18 112/65 (81) 100 04/02/19 04:00 Nasal Cannula 2.0 04/02/19 04:00 82 04/02/19 04:00 97.6 68 14 116/48 (70) 99 04/02/19 04:00 2.0 04/02/19 03:00 80 17 125/65 (85) 98 04/02/19 02:00 78 17 111/55 (73) 98 04/02/19 01:00 75 19 107/59 (75) 98 04/02/19 00:00 97.5 79 17 112/67 (82) 97 04/02/19 00:00 Nasal Cannula 2.0 04/02/19 00:00 2.0 04/02/19 00:00 83 04/01/19 23:00 79 18 136/90 (105) 98 04/01/19 22:31 81 21 100 Nasal Cannula 2.0 28 81 21 100 04/01/19 22:00 80 21 114/81 (92) 98 04/01/19 21:00 82 17 98 Nasal Cannula 2.0 28 04/01/19 21:00 88 21 144/71 (95) 98 04/01/19 21:00 82 17 98 Nasal Cannula 2.0 28 04/01/19 20:31 87 144/71 04/01/19 20:00 97.4 75 21 122/68 (86) 97 04/01/19 20:00 99 04/01/19 20:00 2.0 04/01/19 20:00 Nasal Cannula 2.0 04/01/19 19:00 91 17 134/56 (82) 97 04/01/19 18:00 86 17 137/55 (82) 96 04/01/19 17:00 86 17 137/55 (82) 96 04/01/19 16:00 2.0 04/01/19 16:00 Nasal Cannula 2.0 04/01/19 16:00 97.8 90 25 136/70 (92) 96 04/01/19 16:00 86 04/01/19 15:00 96 23 99/65 (76) 100 04/01/19 14:00 91 20 99/55 (70) 98 04/01/19 13:00 98.6 94 22 124/67 (86) 96 04/01/19 12:00 2.0 04/01/19 12:00 89 18 142/53 (82) 96 04/01/19 12:00 93 04/01/19 12:00 Nasal Cannula 2.0 04/01/19 11:00 108 24 129/73 (91) 100 04/01/19 10:00 97.8 100 21 156/72 (100) 98 04/01/19 09:33 21 04/01/19 09:32 21 04/01/19 09:00 Nasal Cannula 2.0 04/01/19 08:42 89 128/69 Intake and Output 04/01/19 04/02/19 19:00 07:00 Intake Total 1070 ml 410 ml Output Total 950 ml 1150 ml Balance 120 ml -740 ml Intake Oral 670 ml 300 ml IV Total 400 ml 110 ml Output Urine Total 950 ml 1150 ml # Voids 2 Objective GENERAL: A well-developed male, with some discomfort HEENT: Fairly negative. The patient's extraocular movements are grossly intact. Oropharynx moist. NECK: Supple. No adenopathy. The patient has plethora in the neck region. LUNGS: Reduced breath sounds. Occasional wheezes. no rhonchi CARDIAC: RRR. No murmurs, rubs, or gallops. ABDOMEN: Soft, nontender, and nondistended. no distention EXTREMITIES: No cyanosis, clubbing, or edema. NEUROLOGIC: focal weakness. Alert. No facial weakness. Microbiology Date/Time Source Procedure Growth Status 03/31/19 23:55 Blood Blood Culture - Preliminary NO GROWTH AFTER 24 HOURS Resulted 03/31/19 23:45 Blood Blood Culture - Preliminary NO GROWTH AFTER 24 HOURS Resulted 04/01/19 01:37 Rectum Ordered Current Medications Medications (Trade) Dose Ordered Sig/Beverley Route PRN Reason Start Time Stop Time Status Last Admin Dose Admin Acetaminophen/ Hydrocodone Bitart ([place] 5/325) 1 tab BIDPRN PRN ORAL pain scores 4-10 04/01/19 09:42 04/08/19 09:41 Albuterol Sulfate (Proventil) 2.5 mg BIDRT PRN HHN Shortness of Breath 04/01/19 09:41 04/06/19 09:40 Albuterol/ Ipratropium (Albuterol/ Ipratropium) 3 ml Q6H PRN HHN shortness of breath 04/01/19 09:44 04/06/19 09:43 04/01/19 22:28 Aspirin (Ecotrin) 81 mg DAILY ORAL 04/02/19 09:00 05/01/19 08:59 Atorvastatin Calcium (Lipitor) 20 mg BEDTIME ORAL 04/01/19 21:00 05/01/19 20:59 04/01/19 20:31 Carvedilol (Coreg) 6.25 mg EVERY 12 HOURS ORAL 04/01/19 21:00 05/01/19 08:59 04/01/19 20:31 Cefepime HCl 2 gm/ Sodium Chloride 110 ml @ 220 mls/hr Q12HR IV 04/01/19 21:00 04/08/19 20:59 04/01/19 20:30 Docusate Sodium (Colace) 250 mg TWICE A DAY ORAL 04/01/19 18:00 05/01/19 08:59 04/01/19 17:59 Enoxaparin Sodium (Lovenox) 40 mg DAILY SUBQ 04/02/19 09:00 05/01/19 08:59 Furosemide (Lasix) 20 mg DAILY ORAL 04/02/19 09:00 05/01/19 08:59 Levofloxacin (Levaquin) 500 mg DAILY ORAL 04/02/19 09:00 04/08/19 08:59 Magnesium Oxide (Mag-Ox 400mg) 400 mg BID ORAL 04/01/19 18:00 05/01/19 08:59 04/01/19 17:57 Methylprednisolone Sodium Succinate (Solu-MEDROL) 40 mg DAILY IVP 04/02/19 09:00 05/01/19 08:59 Pantoprazole (Protonix) 40 mg DAILY ORAL 04/02/19 09:00 05/01/19 08:59 Potassium Chloride (K-Dur) 10 meq DAILY ORAL 04/02/19 09:00 05/01/19 08:59 Salmeterol Xinafoate/ Fluticasone (Advair 250/50 Diskus) 1 puffs BID INH 04/01/19 18:00 05/01/19 08:59 04/01/19 19:37 Tamsulosin HCl (Flomax) 0.4 mg BEDTIME ORAL 04/01/19 21:00 05/01/19 20:59 04/01/19 20:31 Tiotropium [place] (Spiriva Inhaler) 1 puff DAILY INH 04/02/19 09:00 05/01/19 08:59 Joey Jameson MD Apr 02, 2019 08:04
[2019-04-02] MEDS: Cefepime HCl 2 GM in NS 110 ML IV SCH (08:55)
[2019-04-02] MEDS: Docusate 250mg cap ORAL SCH (08:56)
[2019-04-02] MEDS: Magnesium Oxide 400mg tab ORAL SCH (08:57)
[2019-04-02] MEDS: Carvedilol 6.25mg Tab ORAL SCH (08:58)
[2019-04-02] MEDS ORDERED: Enoxaparin 40mg Inj SUBQ SCH (09:00)
[2019-04-02] MEDS ORDERED: Solu-MEDROL 40mg Inj IVP SCH (09:00)
[2019-04-02] MEDS ORDERED: Levofloxacin 500mg tab ORAL SCH (09:00)
[2019-04-02] MEDS ORDERED: Aspirin EC 81mg tab ORAL SCH (09:00)
[2019-04-02] MEDS: Wixela 250/50 Inhaler - 60 dose INH SCH (09:12)
[2019-04-02] MEDS: Albuterol/Ipratropium 3ml neb HHN PRN (09:32)
--- NOTE | 2019-04-02 09:52 | NUR ---
NURSE NOTES: Pt feeling SOB. RT gave prn albuterol HHN. VSS. Will continue to monitor.
--- NOTE | 2019-04-02 11:33 | NUR ---
NURSE NOTES: Pt resting comfortably. VSS. No acute distress. Will continue to monitor.
--- NOTE | 2019-04-02 12:58 | General Progress Note ---
Assessment/Plan Assessment/Plan: Lt. Parietal Tumor. On transfer list to [facility]. [facility] Transfer Center @ 12:55 PM. Pt. cleared financialy. On "top of the list". COPD - stable. Subjective Allergies: Coded Allergies: No Known Allergies (Unverified , 09/11/15) Subjective No new c/o Objective Last 24 Hour Vital Signs Date Time Temp Pulse Resp B/P (MAP) Pulse Ox O2 Delivery O2 Flow Rate FiO2 04/02/19 12:00 98.5 80 16 69/46 (54) 04/02/19 12:00 Nasal Cannula 2.0 04/02/19 12:00 93 04/02/19 12:00 2.0 04/02/19 11:00 83 20 98/81 (87) 90 04/02/19 10:00 86 18 102/72 (82) 83 04/02/19 09:33 Room Air 21 04/02/19 09:33 Room Air 21 04/02/19 09:33 Room Air 21 04/02/19 09:33 Room Air 21 04/02/19 09:00 91 20 126/95 (105) 90 04/02/19 08:58 99 119/66 04/02/19 08:00 2.0 04/02/19 08:00 Nasal Cannula 2.0 04/02/19 08:00 99 04/02/19 08:00 98.6 94 18 111/50 (70) 85 04/02/19 07:00 97 17 119/66 (83) 98 04/02/19 06:00 78 18 128/40 (69) 98 04/02/19 05:00 80 18 112/65 (81) 100 04/02/19 04:00 Nasal Cannula 2.0 04/02/19 04:00 82 04/02/19 04:00 97.6 68 14 116/48 (70) 99 04/02/19 04:00 2.0 04/02/19 03:00 80 17 125/65 (85) 98 04/02/19 02:00 78 17 111/55 (73) 98 04/02/19 01:00 75 19 107/59 (75) 98 04/02/19 00:00 97.5 79 17 112/67 (82) 97 04/02/19 00:00 Nasal Cannula 2.0 04/02/19 00:00 2.0 04/02/19 00:00 83 04/01/19 23:00 79 18 136/90 (105) 98 04/01/19 22:31 81 21 100 Nasal Cannula 2.0 28 81 21 100 04/01/19 22:00 80 21 114/81 (92) 98 04/01/19 21:00 82 17 98 Nasal Cannula 2.0 28 04/01/19 21:00 88 21 144/71 (95) 98 04/01/19 21:00 82 17 98 Nasal Cannula 2.0 28 04/01/19 20:31 87 144/71 04/01/19 20:00 97.4 75 21 122/68 (86) 97 04/01/19 20:00 99 04/01/19 20:00 2.0 04/01/19 20:00 Nasal Cannula 2.0 04/01/19 19:00 91 17 134/56 (82) 97 04/01/19 18:00 86 17 137/55 (82) 96 04/01/19 17:00 86 17 137/55 (82) 96 04/01/19 16:00 2.0 04/01/19 16:00 Nasal Cannula 2.0 04/01/19 16:00 97.8 90 25 136/70 (92) 96 04/01/19 16:00 86 04/01/19 15:00 96 23 99/65 (76) 100 04/01/19 14:00 91 20 99/55 (70) 98 04/01/19 13:00 98.6 94 22 124/67 (86) 96 Intake and Output 04/01/19 04/02/19 19:00 07:00 Intake Total 1070 ml 410 ml Output Total 950 ml 1150 ml Balance 120 ml -740 ml Intake Oral 670 ml 300 ml IV Total 400 ml 110 ml Output Urine Total 950 ml 1150 ml # Voids 2 Height (Feet): 5 Height (Inches): 4.00 Weight (Pounds): 108 Objective Neck Lipoma CV RR Lungs CTA Abd SNT. BS + E No CCE Neuro A+O x4. Mild rt arm paresis. Terri Walton MD Apr 02, 2019 12:58
--- NOTE | 2019-04-02 13:02 | NUR ---
NURSE NOTES: Dr Farnsworth here to see pt. Dr following up Dr Russell consult. said pt may transfer to [facility]. Will continue to monitor.
--- NOTE | 2019-04-02 14:04 | NUR ---
RD ASSESSMENT & RECOMMENDATIONS SEE CARE ACTIVITY FOR COMPLETE ASSESSMENT DAILY ESTIMATED NEEDS: Needs based on Pulmonary, underweight; 49 kg 30-35 kcals/kg 1470- 1715 total kcals 1-1.5 g protein/kg 49- 74 g total protein Fluid per MD, on lasix mL/kg 6275-4859 total fluid mLs NUTRITION DIAGNOSIS: Increased kcal and pro needs r/t underweight status, h/o COPD AEB pt is 73% of [place] Body Weight, BMI underweight per guidelines, with acute COPD exacerbation. CURRENT DIET:REGULAR PO DIET RECOMMENDATIONS: Continue regular diet/ texture as tolerated ADDITIONAL RECOMMENDATIONS: * Standing wt as able for accurate CBW * Snacks BID in b/w meals * Ensure Enlive BID * Monitor BG on steroidal meds * On lasix, check lytes daily * closely monitor po intake
--- NOTE | 2019-04-02 15:17 | NUR ---
NURSE NOTES: Pt daughter called for pt status. Charge nurse talked to her. Still awaiting bed transfer to [facility]. No acute distress. Will continue to monitor.
--- NOTE | 2019-04-02 16:30 | NUR ---
NURSE NOTES: Received pt. from SHIRT FOLDING MACHINE OPERATORLONDON Fajardo. Pt. a/o x 4. No sign of distress. Denies pain at present. Ambulates to the bathroom. Will cont. to monitor.
--- NOTE | 2019-04-02 16:34 | NUR ---
HAND-OFF: Report given to Fatmata Jackson.
[2019-04-02] MEDS ORDERED: Albuterol/Ipratropium 3ml neb HHN PRN (17:00)
[2019-04-02] MEDS ORDERED: Albuterol ud Inhalation HHN PRN (17:00)
[2019-04-02] MEDS ORDERED: Wixela 250/50 Inhaler - 60 dose INH SCH (18:00)
[2019-04-02] MEDS ORDERED: Docusate 250mg cap ORAL SCH (18:00)
[2019-04-02] MEDS ORDERED: Magnesium Oxide 400mg tab ORAL SCH (18:00)
--- NOTE | 2019-04-02 19:09 | NUR ---
HAND-OFF: Report given to Adina Jackson. Pt. remain stable.
--- NOTE | 2019-04-02 19:10 | NUR ---
NURSE NOTES: received pt from Horacio RN., pt is awake and AOx3-4, no dysrhythmia reported from last shift nurse. pt is waiting to be transfer to [facility] for procedure. urinal at the bedside, educated pt to use call light to avoid fall risk. pt is on 2L of Nasal cannular, no SOB noted. left FA Iv site 20g is intact, patent, and clean. bed at the lowest position, alarmed, and locked. call light within reach. will continue to monitor pt with plan of care.
[2019-04-02] MEDS ORDERED: Atorvastatin 20mg tab ORAL SCH (21:00)
[2019-04-02] MEDS ORDERED: Carvedilol 6.25mg Tab ORAL SCH (21:00)
[2019-04-02] MEDS ORDERED: Tamsulosin 0.4mg cap ORAL SCH (21:00)
[2019-04-03] VITALS: BP 135/76
--- NOTE | 2019-04-03 00:12 | NUR ---
NURSE NOTES: spoke to melinda from [facility] and aware that pt is in stable condition, and right now there is no bed available at the [facility]. the [facility] will call us whenever the bed is ready.
--- NOTE | 2019-04-03 00:28 | Initial Psychiatric Evaluation ---
Psychiatry Consultation Psychiatry Consultation Chief Complaint: General Complaint Allergies: Coded Allergies: No Known Allergies (Unverified , 09/11/15) Medication History Scheduled Aspirin* (Aspir 81*), 81 MG ORAL DAILY, (Reported) Atorvastatin Calcium* (Atorvastatin Calcium*), 20 MG ORAL BEDTIME, (Reported) Carvedilol* (Carvedilol*), 3.125 MG ORAL EVERY 12 HOURS, (Reported) Ipratropium/Albuterol Sulfate (Iprat-Albut 0.5-3(2.5) Mg/3 Ml), 3 ML IH Q4HR, ( Reported) Magnesium Oxide (Magnesium Oxide), 400 MG ORAL BID, (Reported) Pantoprazole* (Pantoprazole*), 40 MG ORAL DAILY, (Reported) Tamsulosin Hcl (Tamsulosin Hcl*), 0.4 MG ORAL BEDTIME, (Reported) Telmisartan (Micardis), 20 MG ORAL DAILY, (Reported) Discontinued Medications Albuterol Sulfate* (Albuterol Sulfate Hhn*), 3 ML INH BID PRN for Shortness of Breath, (Reported) Discontinued Reason: Pt stopped taking med Carvedilol* (Carvedilol*), 6.25 MG ORAL EVERY 12 HOURS, (Reported) Discontinued Reason: Pt stopped taking med Docusate Sodium* (Docusate Sodium*), 250 MG ORAL TWICE A DAY, (Reported) Discontinued Reason: Pt stopped taking med Enoxaparin* (Lovenox*), 30 MG SUBQ EVERY 12 HOURS Discontinued Reason: Pt stopped taking med Fluticasone/Salmeterol (Advair 250-50 Diskus), 1 PUFFS INH BID Discontinued Reason: Pt stopped taking med Furosemide* (Lasix*), 20 MG ORAL DAILY Discontinued Reason: Pt stopped taking med Hydrocodone Bit/Acetaminophen 5-325* ([place] 5-325*), 1 TAB ORAL BID PRN for pain scores 4-10 Discontinued Reason: Pt stopped taking med Levofloxacin* (Levaquin*), 500 MG ORAL DAILY Discontinued Reason: Pt stopped taking med Losartan Potassium* (Losartan Potassium*), 25 MG ORAL DAILY, (Reported) Discontinued Reason: Pt stopped taking med Magnesium Oxide (Magnesium Oxide), 400 MG ORAL DAILY, (Reported) Discontinued Reason: Pt stopped taking med Pantoprazole* (Protonix*), 40 MG ORAL DAILY Discontinued Reason: Pt stopped taking med Potassium Chloride (Klor-Con 10), 10 MEQ ORAL DAILY, (Reported) Discontinued Reason: Pt stopped taking med Tiotropium [place]* (Spiriva*), 1 PUFF INH DAILY, (Reported) Discontinued Reason: Pt stopped taking med Objective Data Height (Feet): 5 Height (Inches): 4.00 Weight (Pounds): 108 Soto Knapp MD Apr 03, 2019 00:28
[2019-04-03] MEDS ORDERED: HYDROcodone/Acetamin 5/325 tab ORAL PRN ×2 (01:00→09:45)
[2019-04-03] MEDS ORDERED: Albuterol ud Inhalation HHN PRN (01:00)
--- NOTE | 2019-04-03 01:09 | NUR ---
NURSE NOTES: endorsed to Evens CALLAHAN.,to call pt's daughter before transfer the pt to [facility].
--- NOTE | 2019-04-03 01:09 | NUR ---
HAND-OFF: Report given to Evens CALLAHAN. pt is stable condition. endorsed regarding belongings and [facility] transportation.
--- NOTE | 2019-04-03 01:10 | NUR ---
NURSE NOTES: Received pt from Evelina Mcelroy RN. Pt is awake and resting in bed in no acute distress, on 2L nasal cannula. IV site intact. Bed locked in lowest position, bed alarm on, call light within reach. Belongings verified. Will continue with plan of care. Daughter requests to be notified when pt is moving to [facility].
[2019-04-03 04:00] VITALS: BP 122/62
--- NOTE | 2019-04-03 07:13 | NUR ---
HAND-OFF: Report given to LONDON Delcid. Endorsed plan of care. pt stable resting in bed.
--- NOTE | 2019-04-03 07:40 | NUR ---
NURSE NOTES: Report received from LONDON Horner. Pt shows no signs of distress, A+Ox3/4, denies pain/SOB. Respirations are even and unlabored on room air. IV site is patent and saline locked. Bed is at lowest position, brakes engaged, siderails x2, bed alarm on, and call light within reach. Pt is in stable condition at this time; will continue to monitor.
[2019-04-03 08:00] VITALS: BP 115/86
[2019-04-03] MEDS: Magnesium Oxide 400mg tab ORAL SCH ×2 (08:13→17:20)
[2019-04-03] MEDS: Solu-MEDROL 40mg Inj IVP SCH (08:13)
[2019-04-03] MEDS: Docusate 250mg cap ORAL SCH ×2 (08:15→17:20)
[2019-04-03] MEDS: Aspirin EC 81mg tab ORAL SCH (08:15)
[2019-04-03] MEDS: Carvedilol 6.25mg Tab ORAL SCH ×2 (08:18→21:01)
[2019-04-03] MEDS: Enoxaparin 40mg Inj SUBQ SCH (08:18)
[2019-04-03] MEDS: Cefepime HCl 2 GM in NS 110 ML IV SCH (08:24)
[2019-04-03] MEDS ORDERED: Aspirin EC 81mg tab ORAL SCH (09:00)
[2019-04-03] MEDS ORDERED: Enoxaparin 40mg Inj SUBQ SCH (09:00)
[2019-04-03] MEDS ORDERED: Solu-MEDROL 40mg Inj IVP SCH (09:00)
[2019-04-03] MEDS ORDERED: Cefepime HCl 2 GM in NS 110 ML IV SCH ×4 (09:00)
[2019-04-03] MEDS: Wixela 250/50 Inhaler - 60 dose INH SCH ×2 (09:47→18:52)
[2019-04-03] MEDS: Albuterol/Ipratropium 3ml neb HHN PRN ×2 (09:50→21:27)
--- NOTE | 2019-04-03 10:21 | NUR ---
Nursing Television Installer Helper Note: Call placed to daughter at request of patient, daughter Morris Jimenez updated on plan of care including transfer to [facility] and verbalized understanding. Primary RN Farhana updated and informed to notify patient of above mentioned.
[2019-04-03 12:00] VITALS: BP 116/60
[2019-04-03 15:57] VITALS: BP 104/57
--- NOTE | 2019-04-03 19:20 | NUR ---
HAND-OFF: Report given to Manuel Castro. Pt is in stable condition; plan of care endorsed.
--- NOTE | 2019-04-03 19:30 | NUR ---
NURSE NOTES: Received report from LONDON Delcid. Patient is awake and responsive. Breathing regular with no distress noted at this time. Patient denies any pain or discomfort at this time. IV is intact and saline locked. Side rails up x3. Bed is in lowest position, breaks engaged, call light within reach at all times. Will continue to monitor.
[2019-04-03 20:00] VITALS: BP 141/72
[2019-04-03] MEDS: Atorvastatin 20mg tab ORAL SCH (21:00)
[2019-04-03] MEDS: Tamsulosin 0.4mg cap ORAL SCH (21:00)
--- NOTE | 2019-04-03 21:32 | Pulmonology Progress Note ---
Assessment/Plan Assessment/Plan Pulmonary Progress Note Assessment/Plan IMPRESSION: 1. Chronic obstructive pulmonary disease with acute exacerbation. 2. Shortness of breath. 3. Respiratory insufficiency. 4. Focal weakness right arm 5. Brain mass. 6. Neck mass. 7. Hyponatremia of unclear etiology. 8. Leukocytosis, likely steroid-induced. PLAN neuro evaluation IV steroids noted vasogenic edema monitor LOC respiratory care oxygen monitor for change and advise medications/laboratory data/nursing notes/ICU care reviewed in detail note reviewed and edited care discussed with RN and RT ICU time spent 40 minutes Subjective Allergies: No Known Allergies Subjective care noted concerns reviewed imaging reviewed Objective Vital Signs Noted Objective GENERAL: A well-developed male, with some discomfort HEENT: Fairly negative. The patient's extraocular movements are grossly intact. Oropharynx moist. NECK: Supple. No adenopathy. The patient has plethora in the neck region. LUNGS: Reduced breath sounds. Occasional wheezes. no rhonchi CARDIAC: RRR. No murmurs, rubs, or gallops. ABDOMEN: Soft, nontender, and nondistended. no distention EXTREMITIES: No cyanosis, clubbing, or edema. NEUROLOGIC: focal weakness. Alert. No facial weakness. Microbiology Date/Time Source Procedure Growth Status 03/31/19 23:55 Blood Blood Culture - Preliminary NO GROWTH AFTER 24 HOURS Resulted 03/31/19 23:45 Blood Blood Culture - Preliminary NO GROWTH AFTER 24 HOURS Resulted 04/01/19 01:37 Rectum Ordered Subjective ROS Limited/Unobtainable: No Allergies: Coded Allergies: No Known Allergies (Unverified , 09/11/15) Objective Last 24 Hour Vital Signs Date Time Temp Pulse Resp B/P (MAP) Pulse Ox O2 Delivery O2 Flow Rate FiO2 04/03/19 21:22 96 20 97 Nasal Cannula 2.0 28 94 20 96 04/03/19 21:01 77 141/72 04/03/19 20:00 96.9 77 20 141/72 (95) 97 04/03/19 18:59 85 16 98 Nasal Cannula 2.0 28 04/03/19 18:57 82 16 97 Nasal Cannula 2.0 28 04/03/19 16:00 92 04/03/19 15:57 97.5 85 19 104/57 (73) 93 04/03/19 12:00 97.2 75 20 116/60 (78) 99 04/03/19 12:00 75 04/03/19 09:50 86 18 96 Nasal Cannula 2.0 28 81 18 98 04/03/19 09:47 81 18 98 Nasal Cannula 2.0 28 04/03/19 09:47 80 18 98 Nasal Cannula 2.0 28 04/03/19 09:47 81 18 98 Nasal Cannula 2.0 28 04/03/19 09:47 80 18 98 Nasal Cannula 2.0 28 04/03/19 09:00 Nasal Cannula 2.0 04/03/19 08:18 96 115/66 04/03/19 08:00 100 04/03/19 08:00 97.7 98 20 115/86 (96) 98 04/03/19 04:00 77 04/03/19 04:00 98.1 77 18 122/62 (82) 98 04/03/19 00:00 83 04/03/19 00:00 Nasal Cannula 2.0 04/03/19 00:00 98.4 89 20 135/76 (95) Intake and Output 04/02/19 04/03/19 19:00 07:00 Intake Total 500 ml 0 ml Output Total 450 ml Balance 50 ml 0 ml Intake Oral 500 ml 0 ml Output Urine Total 450 ml # Voids 2 Microbiology Date/Time Source Procedure Growth Status 03/31/19 23:55 Blood Blood Culture - Preliminary NO GROWTH AFTER 48 HOURS Resulted 03/31/19 23:45 Blood Blood Culture - Preliminary NO GROWTH AFTER 48 HOURS Resulted 04/01/19 01:37 Rectum Ordered Current Medications Medications (Trade) Dose Ordered Sig/Beverley Route PRN Reason Start Time Stop Time Status Last Admin Dose Admin Acetaminophen/ Hydrocodone Bitart ([place] 5/325) 1 tab BIDPRN PRN ORAL pain scores 4-10 04/03/19 01:00 04/08/19 00:59 Albuterol Sulfate (Proventil) 2.5 mg BIDRT PRN HHN Shortness of Breath 04/03/19 01:00 04/06/19 00:59 Albuterol/ Ipratropium (Albuterol/ Ipratropium) 3 ml Q6H PRN HHN shortness of breath 04/03/19 01:00 04/06/19 00:59 04/03/19 21:27 Aspirin (Ecotrin) 81 mg DAILY ORAL 04/03/19 09:00 05/01/19 08:59 04/03/19 08:15 Atorvastatin Calcium (Lipitor) 20 mg BEDTIME ORAL 04/03/19 21:00 05/01/19 20:59 04/03/19 21:00 Carvedilol (Coreg) 6.25 mg EVERY 12 HOURS ORAL 04/03/19 09:00 05/01/19 08:59 04/03/19 21:01 Cefepime HCl 2 gm/ Sodium Chloride 110 ml @ 220 mls/hr DAILY IV 04/03/19 09:00 04/10/19 08:59 04/03/19 08:24 Docusate Sodium (Colace) 250 mg TWICE A DAY ORAL 04/03/19 09:00 05/01/19 08:59 04/03/19 17:20 Enoxaparin Sodium (Lovenox) 40 mg DAILY SUBQ 04/03/19 09:00 05/01/19 08:59 04/03/19 08:18 Furosemide (Lasix) 20 mg DAILY ORAL 04/03/19 09:00 05/01/19 08:59 04/03/19 08:15 Levofloxacin (Levaquin) 250 mg DAILY ORAL 04/03/19 09:00 04/10/19 08:59 04/03/19 08:14 Magnesium Oxide (Mag-Ox 400mg) 400 mg BID ORAL 04/03/19 09:00 05/01/19 08:59 04/03/19 17:20 Methylprednisolone Sodium Succinate (Solu-MEDROL) 40 mg DAILY IVP 04/03/19 09:00 05/01/19 08:59 04/03/19 08:13 Pantoprazole (Protonix) 40 mg DAILY ORAL 04/03/19 09:00 05/01/19 08:59 04/03/19 08:15 Potassium Chloride (K-Dur) 10 meq DAILY ORAL 04/03/19 09:00 05/01/19 08:59 04/03/19 08:15 Salmeterol Xinafoate/ Fluticasone (Advair 250/50 Diskus) 1 puffs BID INH 04/03/19 09:00 05/02/19 17:59 04/03/19 18:52 Tamsulosin HCl (Flomax) 0.4 mg BEDTIME ORAL 04/03/19 21:00 05/01/19 20:59 04/03/19 21:00 Tiotropium [place] (Spiriva Inhaler) 1 puff DAILY INH 04/03/19 09:00 05/01/19 08:59 04/03/19 09:47 Rohit Webster MD Apr 03, 2019 21:32
--- NOTE | 2019-04-03 23:03 | Initial Psychiatric Evaluation ---
Psychiatry Consultation Psychiatry Consultation Chief Complaint: General Complaint History of Present Illness: 78-year-old male from [facility]. The patient came to the ED complaining of right arm weakness x3 days. the pt has poor insight focuse on dc to [facility]. no si/hi poor memory, refuses care at times. Allergies: Coded Allergies: No Known Allergies (Unverified , 09/11/15) Medication History Scheduled Aspirin* (Aspir 81*), 81 MG ORAL DAILY, (Reported) Atorvastatin Calcium* (Atorvastatin Calcium*), 20 MG ORAL BEDTIME, (Reported) Carvedilol* (Carvedilol*), 3.125 MG ORAL EVERY 12 HOURS, (Reported) Ipratropium/Albuterol Sulfate (Iprat-Albut 0.5-3(2.5) Mg/3 Ml), 3 ML IH Q4HR, ( Reported) Magnesium Oxide (Magnesium Oxide), 400 MG ORAL BID, (Reported) Pantoprazole* (Pantoprazole*), 40 MG ORAL DAILY, (Reported) Tamsulosin Hcl (Tamsulosin Hcl*), 0.4 MG ORAL BEDTIME, (Reported) Telmisartan (Micardis), 20 MG ORAL DAILY, (Reported) Discontinued Medications Albuterol Sulfate* (Albuterol Sulfate Hhn*), 3 ML INH BID PRN for Shortness of Breath, (Reported) Discontinued Reason: Pt stopped taking med Carvedilol* (Carvedilol*), 6.25 MG ORAL EVERY 12 HOURS, (Reported) Discontinued Reason: Pt stopped taking med Docusate Sodium* (Docusate Sodium*), 250 MG ORAL TWICE A DAY, (Reported) Discontinued Reason: Pt stopped taking med Enoxaparin* (Lovenox*), 30 MG SUBQ EVERY 12 HOURS Discontinued Reason: Pt stopped taking med Fluticasone/Salmeterol (Advair 250-50 Diskus), 1 PUFFS INH BID Discontinued Reason: Pt stopped taking med Furosemide* (Lasix*), 20 MG ORAL DAILY Discontinued Reason: Pt stopped taking med Hydrocodone Bit/Acetaminophen 5-325* ([place] 5-325*), 1 TAB ORAL BID PRN for pain scores 4-10 Discontinued Reason: Pt stopped taking med Levofloxacin* (Levaquin*), 500 MG ORAL DAILY Discontinued Reason: Pt stopped taking med Losartan Potassium* (Losartan Potassium*), 25 MG ORAL DAILY, (Reported) Discontinued Reason: Pt stopped taking med Magnesium Oxide (Magnesium Oxide), 400 MG ORAL DAILY, (Reported) Discontinued Reason: Pt stopped taking med Pantoprazole* (Protonix*), 40 MG ORAL DAILY Discontinued Reason: Pt stopped taking med Potassium Chloride (Klor-Con 10), 10 MEQ ORAL DAILY, (Reported) Discontinued Reason: Pt stopped taking med Tiotropium [place]* (Spiriva*), 1 PUFF INH DAILY, (Reported) Discontinued Reason: Pt stopped taking med Patient History Limited by: medical condition History Provided By: Patient, Medical Record, PMD Objective Data Height (Feet): 5 Height (Inches): 4.00 Weight (Pounds): 107 Appearance: well groomed Behavior Mannerisms: good eye contact Affect: blunted Mood: depressed Thought Process: logical Assessment/Plan Diagnosis [place] I: Anxiety do depressive do reluctant to take meds transfer to [facility] pending provided carlitos/Soto Braxton MD Apr 03, 2019 23:03
[2019-04-04] VITALS: BP 129/60
[2019-04-04 04:00] VITALS: BP 130/57
--- NOTE | 2019-04-04 05:18 | NUR ---
NURSE NOTES: Received call from Angie from [facility] for updates regarding patient's condition. Was told, "we'll call you if there's a bed available."
--- NOTE | 2019-04-04 07:30 | NUR ---
HAND-OFF: Report given to LONDON Hood. Patient in stable condition. Plan of care endorsed.
--- NOTE | 2019-04-04 07:46 | NUR ---
NURSE NOTES: Received patient from Golden Rn. Patient is awake AAx3/4. No complain of pain or discomfort at this time. patient refusing to have bed alarm on. made aware of the functions of alarm. patient agreed to call staff when he needed to get up- staff alerted of patients refusal. will do frequent rounds. Bed locked to lowest position. call phan within patients reach. patient for possible transfer to [facility]. awaiting bed available. will follow.
[2019-04-04 08:00] VITALS: BP 107/54
[2019-04-04] MEDS: Docusate 250mg cap ORAL SCH ×2 (08:35→17:46)
[2019-04-04] MEDS: Carvedilol 6.25mg Tab ORAL SCH ×2 (08:35→21:09)
[2019-04-04] MEDS: Solu-MEDROL 40mg Inj IVP SCH (08:36)
[2019-04-04] MEDS: Aspirin EC 81mg tab ORAL SCH (08:36)
[2019-04-04] MEDS: Magnesium Oxide 400mg tab ORAL SCH ×2 (08:36→17:46)
[2019-04-04] MEDS: Cefepime HCl 2 GM in NS 110 ML IV SCH (08:37)
[2019-04-04] MEDS: Enoxaparin 40mg Inj SUBQ SCH (08:38)
[2019-04-04] MEDS: Wixela 250/50 Inhaler - 60 dose INH SCH ×2 (09:40→19:45)
[2019-04-04] MEDS: Albuterol/Ipratropium 3ml neb HHN PRN ×2 (09:48→22:19)
[2019-04-04 12:00] VITALS: BP 115/60
[2019-04-04] MEDS ORDERED: Tubing IV Secondary IV ONE (12:03)
[2019-04-04] MEDS ORDERED: NS 275ml ONE (12:03)
[2019-04-04 16:00] VITALS: BP 129/78
--- NOTE | 2019-04-04 16:30 | NUR ---
NURSE NOTES: Patient stated Kevin's called her daughter and said there's already be available for him. call placed to employment evaluator/case manager Kary who followed up with [facility] and said that there's still no bed available. Patient made aware and he became very upset. reassurance provided to patient.
--- NOTE | 2019-04-04 17:21 | Pulmonology Progress Note ---
Assessment/Plan Assessment/Plan IMPRESSION: 1. Chronic obstructive pulmonary disease with acute exacerbation. 2. Shortness of breath. 3. Respiratory insufficiency. 4. Focal weakness. 5. Brain mass. 6. Neck mass. 7. Hyponatremia of unclear etiology. 8. Leukocytosis, likely steroid-induced. PLAN neuro evaluation IV steroids ?PO noted vasogenic edema monitor LOC respiratory care oxygen monitor for change and advise await transfer to [facility] impression, plan, and exam edited and reviewed in detail care discussed with RN Subjective Allergies: Coded Allergies: No Known Allergies (Unverified , 09/11/15) Subjective care noted moved to tele concerns reviewed imaging reviewed Objective Last 24 Hour Vital Signs Date Time Temp Pulse Resp B/P (MAP) Pulse Ox O2 Delivery O2 Flow Rate FiO2 04/04/19 12:00 97.3 84 18 115/60 (78) 97 04/04/19 12:00 91 04/04/19 09:40 81 18 98 Nasal Cannula 2.0 28 04/04/19 09:40 Nasal Cannula 04/04/19 09:40 80 18 98 Nasal Cannula 2.0 28 04/04/19 09:40 Nasal Cannula 04/04/19 09:00 Nasal Cannula 2.0 04/04/19 08:35 88 107/54 04/04/19 08:00 91 04/04/19 08:00 97.0 88 18 107/54 (71) 98 04/04/19 04:00 97.7 83 20 130/57 (81) 95 04/04/19 04:00 87 04/04/19 00:00 81 04/04/19 00:00 96.7 80 20 129/60 (83) 98 04/03/19 21:22 96 20 97 Nasal Cannula 2.0 28 94 20 96 04/03/19 21:01 77 141/72 04/03/19 21:00 Nasal Cannula 2.0 04/03/19 20:00 96.9 77 20 141/72 (95) 97 04/03/19 20:00 79 04/03/19 18:59 85 16 98 Nasal Cannula 2.0 28 04/03/19 18:57 82 16 97 Nasal Cannula 2.0 28 Intake and Output 04/03/19 04/04/19 19:00 07:00 Intake Total 1000 ml Output Total 750 ml Balance 250 ml Intake Oral 1000 ml Output Urine Total 750 ml # Voids 2 Objective GENERAL: A well-developed male, with some discomfort HEENT: Fairly negative. The patient's extraocular movements are grossly intact. Oropharynx moist. NECK: Supple. No adenopathy. The patient has plethora in the neck region. LUNGS: Reduced breath sounds. Occasional wheezes. no rhonchi CARDIAC: RRR. No murmurs, rubs, or gallops. ABDOMEN: Soft, nontender, and nondistended. no distention EXTREMITIES: No cyanosis, clubbing, or edema. NEUROLOGIC: focal weakness. Alert. No facial weakness. Current Medications Medications (Trade) Dose Ordered Sig/Beverley Route PRN Reason Start Time Stop Time Status Last Admin Dose Admin Acetaminophen/ Hydrocodone Bitart ([place] 5/325) 1 tab BIDPRN PRN ORAL pain scores 4-10 04/03/19 01:00 04/08/19 00:59 Albuterol Sulfate (Proventil) 2.5 mg BIDRT PRN HHN Shortness of Breath 04/03/19 01:00 04/06/19 00:59 Albuterol/ Ipratropium (Albuterol/ Ipratropium) 3 ml Q6H PRN HHN shortness of breath 04/03/19 01:00 04/06/19 00:59 04/04/19 09:48 Aspirin (Ecotrin) 81 mg DAILY ORAL 04/03/19 09:00 05/01/19 08:59 04/04/19 08:36 Atorvastatin Calcium (Lipitor) 20 mg BEDTIME ORAL 04/03/19 21:00 05/01/19 20:59 04/03/19 21:00 Carvedilol (Coreg) 6.25 mg EVERY 12 HOURS ORAL 04/03/19 09:00 05/01/19 08:59 04/04/19 08:35 Cefepime HCl 2 gm/ Sodium Chloride 110 ml @ 220 mls/hr DAILY IV 04/03/19 09:00 04/10/19 08:59 04/04/19 08:37 Docusate Sodium (Colace) 250 mg TWICE A DAY ORAL 04/03/19 09:00 05/01/19 08:59 04/04/19 08:35 Enoxaparin Sodium (Lovenox) 40 mg DAILY SUBQ 04/03/19 09:00 05/01/19 08:59 04/04/19 08:38 Furosemide (Lasix) 20 mg DAILY ORAL 04/03/19 09:00 05/01/19 08:59 04/04/19 08:35 Levofloxacin (Levaquin) 250 mg DAILY ORAL 04/03/19 09:00 04/10/19 08:59 04/04/19 08:36 Magnesium Oxide (Mag-Ox 400mg) 400 mg BID ORAL 04/03/19 09:00 05/01/19 08:59 04/04/19 08:36 Methylprednisolone Sodium Succinate (Solu-MEDROL) 40 mg DAILY IVP 04/03/19 09:00 05/01/19 08:59 04/04/19 08:36 Pantoprazole (Protonix) 40 mg DAILY ORAL 04/03/19 09:00 05/01/19 08:59 04/04/19 08:35 Potassium Chloride (K-Dur) 10 meq DAILY ORAL 04/03/19 09:00 05/01/19 08:59 04/04/19 08:36 Salmeterol Xinafoate/ Fluticasone (Advair 250/50 Diskus) 1 puffs BID INH 04/03/19 09:00 05/02/19 17:59 04/04/19 09:40 Tamsulosin HCl (Flomax) 0.4 mg BEDTIME ORAL 04/03/19 21:00 05/01/19 20:59 04/03/19 21:00 Tiotropium [place] (Spiriva Inhaler) 1 puff DAILY INH 04/03/19 09:00 05/01/19 08:59 04/03/19 09:47 Joey Jameson MD Apr 04, 2019 17:21
--- NOTE | 2019-04-04 19:30 | NUR ---
NURSE NOTES: Received report from LONDON Hood. Patient is awake and responsive. Breathing regular and unlabored with no distress noted at this time. Patient denies any pain or discomfort at this time. Patient's IV is intact and saline locked. Bed is in lowest position, breaks engaged, call light within reach at all times. Will continue to monitor.
--- NOTE | 2019-04-04 19:58 | NUR ---
HAND-OFF: Report given to Manuel Cotto. Plan of care endorsed.
[2019-04-04 20:00] VITALS: BP 130/76
[2019-04-04] MEDS: Atorvastatin 20mg tab ORAL SCH (21:08)
[2019-04-04] MEDS: Tamsulosin 0.4mg cap ORAL SCH (21:08)
--- NOTE | 2019-04-04 22:04 | NUR ---
NURSE NOTES: Patient refuses MRSA and VRE swabs at this time.
[2019-04-05] VITALS: BP 140/70
[2019-04-05 04:00] VITALS: BP 130/64
--- NOTE | 2019-04-05 07:07 | NUR ---
HAND-OFF: Report given to LONDON Hood. Patient in stable condition, sleeping. Plan of care endorsed.
--- NOTE | 2019-04-05 07:40 | NUR ---
NURSE NOTES: Received report from Manuel Cantor. patient is sleeping comfortably in bed. no signs and symptoms of pain or discomfort. fall precautions in place bed locked to lowest position. refusing bed alarm. call phan within patients reach. patient for pending transfer to [facility]. awaiting available bed.
[2019-04-05 08:00] VITALS: BP 103/66
--- NOTE | 2019-04-05 08:52 | Pulmonology Progress Note ---
Assessment/Plan Assessment/Plan IMPRESSION: 1. Chronic obstructive pulmonary disease with acute exacerbation. 2. Shortness of breath. 3. Respiratory insufficiency. 4. Focal weakness. 5. Brain mass. 6. Neck mass. 7. Hyponatremia of unclear etiology. 8. Leukocytosis, likely steroid-induced. PLAN neuro evaluation IV steroids -dc for now noted vasogenic edema monitor LOC respiratory care oxygen monitor for change and advise await transfer to [facility] impression, plan, and exam edited and reviewed in detail care discussed with RN Subjective Allergies: Coded Allergies: No Known Allergies (Unverified , 09/11/15) Subjective care noted moved to [facility] overnight care reviewed imaging reviewed Objective Last 24 Hour Vital Signs Date Time Temp Pulse Resp B/P (MAP) Pulse Ox O2 Delivery O2 Flow Rate FiO2 04/05/19 08:00 97.9 88 18 103/66 (78) 96 04/05/19 04:00 98.6 89 20 130/64 (86) 99 04/05/19 04:00 74 04/05/19 00:00 98.8 86 18 140/70 (93) 98 04/05/19 00:00 83 04/04/19 22:20 85 18 99 Nasal Cannula 2.0 28 82 18 97 04/04/19 21:09 90 130/76 04/04/19 21:00 Nasal Cannula 2.0 04/04/19 20:00 98.7 90 18 130/76 (94) 94 04/04/19 20:00 92 04/04/19 19:47 88 18 95 Room Air 21 04/04/19 19:45 84 18 95 Room Air 21 04/04/19 16:00 98.0 84 19 129/78 (95) 99 04/04/19 16:00 84 04/04/19 12:00 97.3 84 18 115/60 (78) 97 04/04/19 12:00 91 04/04/19 09:40 81 18 98 Nasal Cannula 2.0 28 04/04/19 09:40 Nasal Cannula 04/04/19 09:40 80 18 98 Nasal Cannula 2.0 28 04/04/19 09:40 Nasal Cannula 04/04/19 09:00 Nasal Cannula 2.0 Intake and Output 04/04/19 04/05/19 18:59 06:59 Intake Total 1000 ml 240 ml Balance 1000 ml 240 ml Intake Oral 1000 ml 240 ml # Voids 6 1 # Bowel Movements 1 Objective GENERAL: A well-developed male, with some discomfort HEENT: Fairly negative. The patient's extraocular movements are grossly intact. Oropharynx moist. NECK: Supple. No adenopathy. The patient has plethora in the neck region. LUNGS: Reduced breath sounds. Occasional wheezes. no rhonchi CARDIAC: RRR. No murmurs, rubs, or gallops. ABDOMEN: Soft, nontender, and nondistended. no distention EXTREMITIES: No cyanosis, clubbing, or edema. NEUROLOGIC: focal weakness. Alert. No facial weakness. Current Medications Medications (Trade) Dose Ordered Sig/Beverley Route PRN Reason Start Time Stop Time Status Last Admin Dose Admin Acetaminophen/ Hydrocodone Bitart ([place] 5/325) 1 tab BIDPRN PRN ORAL pain scores 4-10 04/03/19 01:00 04/08/19 00:59 Albuterol Sulfate (Proventil) 2.5 mg BIDRT PRN HHN Shortness of Breath 04/03/19 01:00 04/06/19 00:59 Albuterol/ Ipratropium (Albuterol/ Ipratropium) 3 ml Q6H PRN HHN shortness of breath 04/03/19 01:00 04/06/19 00:59 04/04/19 22:19 Aspirin (Ecotrin) 81 mg DAILY ORAL 04/03/19 09:00 05/01/19 08:59 04/04/19 08:36 Atorvastatin Calcium (Lipitor) 20 mg BEDTIME ORAL 04/03/19 21:00 05/01/19 20:59 04/04/19 21:08 Carvedilol (Coreg) 6.25 mg EVERY 12 HOURS ORAL 04/03/19 09:00 05/01/19 08:59 04/04/19 21:09 Cefepime HCl 2 gm/ Sodium Chloride 110 ml @ 220 mls/hr DAILY IV 04/03/19 09:00 04/10/19 08:59 04/04/19 08:37 Docusate Sodium (Colace) 250 mg TWICE A DAY ORAL 04/03/19 09:00 05/01/19 08:59 04/04/19 17:46 Enoxaparin Sodium (Lovenox) 40 mg DAILY SUBQ 04/03/19 09:00 05/01/19 08:59 04/04/19 08:38 Furosemide (Lasix) 20 mg DAILY ORAL 04/03/19 09:00 05/01/19 08:59 04/04/19 08:35 Levofloxacin (Levaquin) 250 mg DAILY ORAL 04/03/19 09:00 04/10/19 08:59 04/04/19 08:36 Magnesium Oxide (Mag-Ox 400mg) 400 mg BID ORAL 04/03/19 09:00 05/01/19 08:59 04/04/19 17:46 Methylprednisolone Sodium Succinate (Solu-MEDROL) 40 mg DAILY IVP 04/03/19 09:00 05/01/19 08:59 04/04/19 08:36 Pantoprazole (Protonix) 40 mg DAILY ORAL 04/03/19 09:00 05/01/19 08:59 04/04/19 08:35 Potassium Chloride (K-Dur) 10 meq DAILY ORAL 04/03/19 09:00 05/01/19 08:59 04/04/19 08:36 Salmeterol Xinafoate/ Fluticasone (Advair 250/50 Diskus) 1 puffs BID INH 04/03/19 09:00 05/02/19 17:59 04/04/19 19:45 Tamsulosin HCl (Flomax) 0.4 mg BEDTIME ORAL 04/03/19 21:00 05/01/19 20:59 04/04/19 21:08 Tiotropium [place] (Spiriva Inhaler) 1 puff DAILY INH 04/03/19 09:00 05/01/19 08:59 04/03/19 09:47 Joey Jameson MD Apr 05, 2019 08:52
[2019-04-05] MEDS: Docusate 250mg cap ORAL SCH ×2 (08:56→17:17)
[2019-04-05] MEDS: Aspirin EC 81mg tab ORAL SCH (08:56)
[2019-04-05] MEDS: Magnesium Oxide 400mg tab ORAL SCH ×2 (08:56→17:17)
[2019-04-05] MEDS: Enoxaparin 40mg Inj SUBQ SCH (08:58)
[2019-04-05] MEDS: Carvedilol 6.25mg Tab ORAL SCH ×2 (09:00→21:13)
[2019-04-05] MEDS: Cefepime HCl 2 GM in NS 110 ML IV SCH (09:07)
--- NOTE | 2019-04-05 09:22 | NUR ---
NURSE NOTES: Spoke to [facility]. Solumedrol IVP given but not saved not meditech. Patient will start on prednisone in am.
[2019-04-05] MEDS: Wixela 250/50 Inhaler - 60 dose INH SCH ×2 (09:34→19:28)
--- NOTE | 2019-04-05 11:28 | NUR ---
RD ASSESSMENT & RECOMMENDATIONS SEE CARE ACTIVITY FOR COMPLETE ASSESSMENT DAILY ESTIMATED NEEDS: Needs based on Pulmonary, underweight; 49 kg 30-35 kcals/kg 1470- 1715 total kcals 1-1.5 g protein/kg 49- 74 g total protein Fluid per MD, on lasix NUTRITION DIAGNOSIS: Increased kcal and pro needs r/t underweight status, h/o COPD AEB pt is 73% of [place] Body Weight, BMI underweight per guidelines, with acute COPD exacerbation. CURRENT DIET: REGULAR PO DIET RECOMMENDATIONS: Continue regular diet/ texture as tolerated ADDITIONAL RECOMMENDATIONS: * Standing wt as able for accurate CBW * Ensure Enlive BID * On lasix, check lytes daily / updated labs as able * Monitor BG on steroidal meds * closely monitor po intake - good intake
[2019-04-05 12:00] VITALS: BP 110/54
--- NOTE | 2019-04-05 15:24 | NUR ---
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 98.1 HR 89 RR 20 B/P 110/54 2L NC O2 SAT @ 98% IS: CEFEPIME IV LASIX IV LEVAQUIN PO PREDNISONE PO ASA PO ADVAIR HHN TELE STATUS
--- NOTE | 2019-04-05 15:26 | NUR ---
COLLEGE PRESIDENT NOTES SPOKE WITH DAVID FROM [facility], NO BEDS AVAILABLE AT THIS TIME. WILL FOLLOW UP WITH THE NURSING STATION IF BED BECOMES AVAILABLE.
[2019-04-05 16:00] VITALS: BP 129/65
--- NOTE | 2019-04-05 18:19 | General Progress Note ---
Assessment/Plan Assessment/Plan: 1) Discovery of brain mass 2) COPD 3) Clinically euvolemic Plan: Awaiting transfer to [facility] Subjective Allergies: Coded Allergies: No Known Allergies (Unverified , 09/11/15) Subjective No new complaint, no c/p or sob, no seizure, no [place] Objective Last 24 Hour Vital Signs Date Time Temp Pulse Resp B/P (MAP) Pulse Ox O2 Delivery O2 Flow Rate FiO2 04/05/19 16:00 97.9 89 18 129/65 (86) 99 04/05/19 16:00 88 04/05/19 12:00 98.1 89 20 110/54 (72) 96 04/05/19 12:00 86 04/05/19 09:47 Nasal Cannula 04/05/19 09:47 Nasal Cannula 04/05/19 09:45 79 18 100 Nasal Cannula 2.0 28 77 18 99 04/05/19 09:37 78 18 97 Room Air 21 04/05/19 09:34 76 18 99 Room Air 21 04/05/19 09:00 88 103/66 04/05/19 09:00 Nasal Cannula 2.0 04/05/19 08:00 97.9 88 18 103/66 (78) 96 04/05/19 08:00 78 04/05/19 04:00 98.6 89 20 130/64 (86) 99 04/05/19 04:00 74 04/05/19 00:00 98.8 86 18 140/70 (93) 98 04/05/19 00:00 83 04/04/19 22:20 85 18 99 Nasal Cannula 2.0 28 82 18 97 04/04/19 21:09 90 130/76 04/04/19 21:00 Nasal Cannula 2.0 04/04/19 20:00 98.7 90 18 130/76 (94) 94 04/04/19 20:00 92 04/04/19 19:47 88 18 95 Room Air 21 04/04/19 19:45 84 18 95 Room Air 21 Intake and Output 04/04/19 04/05/19 19:00 07:00 Intake Total 1000 ml 240 ml Balance 1000 ml 240 ml Intake Oral 1000 ml 240 ml # Voids 6 1 # Bowel Movements 1 Height (Feet): 5 Height (Inches): 4.00 Weight (Pounds): 115 General Appearance: WD/WN, no apparent distress EENT: PERRL/EOMI Neck: non-tender Cardiovascular: normal rate, regular rhythm Respiratory/Chest: chest wall non-tender, lungs clear Abdomen: non tender Pelvis: normal external exam Neurologic: 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
[2019-04-05] MEDS: Albuterol/Ipratropium 3ml neb HHN PRN ×2 (19:27→23:51)
--- NOTE | 2019-04-05 19:39 | NUR ---
HAND-OFF: Report given to Manuel Horner.Plan of care endorsed.
--- NOTE | 2019-04-05 19:40 | NUR ---
NURSE NOTES: Received pt from LONDON Hood. Pt is awake and resting in bed in no acute distress. IV site intact and patent. Bed locked in lowest position, call light within reach, bed alarm on. Will continue with plan of care.
[2019-04-05 20:00] VITALS: BP 155/75
--- NOTE | 2019-04-05 21:00 | Progress Note ---
DATE: 04/05/2019 SUBJECTIVE: The patient is in bed. No acute distress noted. The patient is focused on being transferred to [facility]. Has anxiety, poor insight. Weak. Usually irritable. The patient is refusing care. Uncooperative. Able to answer the questions appropriately. MENTAL STATUS EXAMINATION: The patient is alert, oriented times self, place, and situation. Mood is irritable and anxious. Affect is constricted, congruent with mood. Thought process is concrete. Thought content, no suicidal or homicidal ideation. Memory is impaired. Insight and judgment is fair. ASSESSMENT: 1. Anxiety disorder. 2. Major depressive disorder. PLAN: 1. The patient is reluctant to take any psychotropic medication. 2. Provide the patient with reality orientation and supportive therapy. Soto Knapp M.D. DR: KAEL JOB#: [id number] CC:
[2019-04-05] MEDS: Tamsulosin 0.4mg cap ORAL SCH (21:13)
[2019-04-05] MEDS: Atorvastatin 20mg tab ORAL SCH (21:14)
[2019-04-06] VITALS: BP 149/76
[2019-04-06 04:00] VITALS: BP 149/73
[2019-04-06 07:32] LABS: BASOPHILS % (AUTO) 1.4 % (0.0-2.0); EOSINOPHILS % (AUTO) 1.7 % (0.0-3.0); HEMATOCRIT 33.2 % (42.0-52.0); HEMOGLOBIN 11.3 G/DL (14.2-18.0); LYMPHOCYTES % (AUTO) 31.7 % (20.0-45.0); MEAN CORPUSCULAR VOLUME 87 FL (80-99); MONOCYTES % (AUTO) 12.7 % (1.0-10.0); NEUTROPHILS % (AUTO) 52.5 % (45.0-75.0); PLATELET COUNT 149 K/UL (150-450); RED BLOOD COUNT 3.82 M/UL (4.70-6.10); RED CELL DISTRIBUTION WIDTH 11.5 % (11.6-14.8); WHITE BLOOD COUNT 4.3 K/UL (4.8-10.8)
[2019-04-06 07:39] LABS: ALANINE AMINOTRANSFERASE 29 U/L (12-78); ALBUMIN 2.8 G/DL (3.4-5.0); ALBUMIN/GLOBULIN RATIO 1.1 (1.0-2.7); ALKALINE PHOSPHATASE 67 U/L (46-116); ANION GAP 3 mmol/L (5-15); ASPARTATE AMINO TRANSFERASE 26 U/L (15-37); BILIRUBIN,TOTAL 0.4 MG/DL (0.2-1.0); BLOOD UREA NITROGEN 12 mg/dL (7-18); CALCIUM 8.3 MG/DL (8.5-10.1); CARBON DIOXIDE 34 MMOL/L (21-32); CHLORIDE 99 MMOL/L (98-107); CREATININE 0.6 MG/DL (0.55-1.30); POTASSIUM 3.8 MMOL/L (3.5-5.1); SODIUM 136 MMOL/L (136-145)
--- NOTE | 2019-04-06 07:44 | NUR ---
HAND-OFF: Report given to LONDON Melgoza. Pt is restin in bed in no acute distress. Endorsed plan of care.
--- NOTE | 2019-04-06 07:53 | NUR ---
NURSE NOTES: Nurse report given by LONDON Soriano. Patient's awake and eating breakfast in bed, AO x 3, denies pain, no s/s of distress or SOB. Bed low and locked, call light within reach, side rails x2, bed alarm is on. Neck lump noted. All needs met. Will continue to monitor.
[2019-04-06 08:00] VITALS: BP 131/64
[2019-04-06] MEDS: Wixela 250/50 Inhaler - 60 dose INH SCH (08:42)
[2019-04-06] MEDS: Cefepime HCl 2 GM in NS 110 ML IV SCH (08:46)
[2019-04-06] MEDS: Aspirin EC 81mg tab ORAL SCH (08:46)
[2019-04-06] MEDS: Magnesium Oxide 400mg tab ORAL SCH (08:47)
[2019-04-06] MEDS: Carvedilol 6.25mg Tab ORAL SCH (08:47)
[2019-04-06] MEDS: Docusate 250mg cap ORAL SCH (08:47)
[2019-04-06] MEDS: Enoxaparin 40mg Inj SUBQ SCH (08:48)
--- NOTE | 2019-04-06 11:44 | Pulmonology Progress Note ---
Assessment/Plan Assessment/Plan IMPRESSION: 1. Chronic obstructive pulmonary disease with acute exacerbation. 2. Shortness of breath. 3. Respiratory insufficiency. 4. Focal weakness. 5. Brain mass. 6. Neck mass. 7. Hyponatremia of unclear etiology. 8. Leukocytosis, likely steroid-induced. PLAN neuro evaluation on po prednisone psych follow up noted vasogenic edema monitor LOC respiratory care oxygen monitor for change and advise await transfer to [facility] impression, plan, and exam edited and reviewed in detail care discussed with RN Subjective Allergies: Coded Allergies: No Known Allergies (Unverified , 09/11/15) Subjective care noted psych noted overnight care reviewed imaging reviewed Objective Last 24 Hour Vital Signs Date Time Temp Pulse Resp B/P (MAP) Pulse Ox O2 Delivery O2 Flow Rate FiO2 04/06/19 09:00 Nasal Cannula 2.0 04/06/19 08:50 85 18 98 Nasal Cannula 2.0 28 04/06/19 08:48 85 18 98 Nasal Cannula 2.0 28 04/06/19 08:47 83 131/64 04/06/19 08:47 83 18 97 Nasal Cannula 2.0 28 04/06/19 08:43 83 18 97 Nasal Cannula 2.0 28 04/06/19 08:00 98.2 91 20 131/64 (86) 98 04/06/19 08:00 96 04/06/19 04:00 98.4 73 16 149/73 (98) 99 04/06/19 04:00 73 04/06/19 00:00 67 04/06/19 00:00 97.8 67 18 149/76 (100) 98 04/05/19 23:53 75 18 99 Nasal Cannula 2.0 78 20 98 04/05/19 21:13 83 155/75 04/05/19 21:00 Nasal Cannula 2.0 04/05/19 20:00 78 04/05/19 20:00 97.3 78 18 155/75 (101) 94 04/05/19 19:33 78 18 98 Nasal Cannula 2.0 28 85 20 95 04/05/19 19:31 85 20 95 Nasal Cannula 2.0 28 04/05/19 19:30 85 20 95 Nasal Cannula 2.0 28 04/05/19 16:00 97.9 89 18 129/65 (86) 99 04/05/19 16:00 88 04/05/19 12:00 98.1 89 20 110/54 (72) 96 04/05/19 12:00 86 Intake and Output 04/05/19 04/06/19 18:59 06:59 Intake Total 300 ml 250 ml Balance 300 ml 250 ml Intake Oral 300 ml 250 ml # Voids 2 2 Objective GENERAL: A well-developed male, with some discomfort HEENT: Fairly negative. The patient's extraocular movements are grossly intact. Oropharynx moist. NECK: Supple. No adenopathy. The patient has plethora in the neck region. LUNGS: Reduced breath sounds. Occasional wheezes. no rhonchi CARDIAC: RRR. No murmurs, rubs, or gallops. ABDOMEN: Soft, nontender, and nondistended. no distention EXTREMITIES: No cyanosis, clubbing, or edema. NEUROLOGIC: focal weakness. Alert. No facial weakness. Laboratory Tests 04/06/19 06:30: White Blood Count 4.3L, Red Blood Count 3.82L, Hemoglobin 11.3L, Hematocrit 33.2L, Mean Corpuscular Volume 87, Mean Corpuscular Hemoglobin 29.7, Mean Corpuscular Hemoglobin Concent 34.2, Red Cell Distribution Width 11.5L, Platelet Count 149L, Mean Platelet Volume 5.5L, Neutrophils (%) (Auto) 52.5, Lymphocytes (%) (Auto) 31.7, Monocytes (%) (Auto) 12.7H, Eosinophils (%) (Auto) 1.7, Basophils (%) (Auto) 1.4, Sodium Level 136, Potassium Level 3.8, Chloride Level 99, Carbon Dioxide Level 34H, Anion Gap 3L, Blood Urea Nitrogen 12, Creatinine 0.6, Estimat Glomerular Filtration Rate , Glucose Level 80, Calcium Level 8.3L, Total Bilirubin 0.4, Aspartate Amino Transf (AST/SGOT) 26, Alanine Aminotransferase (ALT/SGPT) 29, Alkaline Phosphatase 67, Total Protein 5.3L, Albumin 2.8L, Globulin 2.5, Albumin/Globulin Ratio 1.1 Current Medications Medications (Trade) Dose Ordered Sig/B[place] Route PRN Reason Start Time Stop Time Status Last Admin Dose Admin Acetaminophen/ Hydrocodone Bitart ([place] 5/325) 1 tab BIDPRN PRN ORAL pain scores 4-10 04/03/19 01:00 04/08/19 00:59 Aspirin (Ecotrin) 81 mg DAILY ORAL 04/03/19 09:00 05/01/19 08:59 04/06/19 08:46 Atorvastatin Calcium (Lipitor) 20 mg BEDTIME ORAL 04/03/19 21:00 05/01/19 20:59 04/05/19 21:14 Carvedilol (Coreg) 6.25 mg EVERY 12 HOURS ORAL 04/03/19 09:00 05/01/19 08:59 04/06/19 08:47 Cefepime HCl 2 gm/ Sodium Chloride 110 ml @ 220 mls/hr DAILY IV 04/03/19 09:00 04/10/19 08:59 04/06/19 08:46 Docusate Sodium (Colace) 250 mg TWICE A DAY ORAL 04/03/19 09:00 05/01/19 08:59 04/06/19 08:47 Enoxaparin Sodium (Lovenox) 40 mg DAILY SUBQ 04/03/19 09:00 05/01/19 08:59 04/05/19 08:58 Furosemide (Lasix) 20 mg DAILY ORAL 04/03/19 09:00 05/01/19 08:59 04/06/19 08:46 Levofloxacin (Levaquin) 250 mg DAILY ORAL 04/03/19 09:00 04/10/19 08:59 04/06/19 08:46 Magnesium Oxide (Mag-Ox 400mg) 400 mg BID ORAL 04/03/19 09:00 05/01/19 08:59 04/06/19 08:47 Pantoprazole (Protonix) 40 mg DAILY ORAL 04/03/19 09:00 05/01/19 08:59 04/06/19 08:47 Potassium Chloride (K-Dur) 10 meq DAILY ORAL 04/03/19 09:00 05/01/19 08:59 04/06/19 08:46 Prednisone (predniSONE) 10 mg DAILY ORAL 04/06/19 09:00 05/05/19 08:59 04/06/19 08:47 Salmeterol Xinafoate/ Fluticasone (Advair 250/50 Diskus) 1 puffs BID INH 04/03/19 09:00 05/02/19 17:59 04/06/19 08:42 Tamsulosin HCl (Flomax) 0.4 mg BEDTIME ORAL 04/03/19 21:00 05/01/19 20:59 04/05/19 21:13 Tiotropium Amery (Spiriva Inhaler) 1 puff DAILY INH 04/03/19 09:00 05/01/19 08:59 04/06/19 08:42 Joey Jameson MD Apr 06, 2019 11:44
[2019-04-06 12:00] VITALS: BP 113/55
--- NOTE | 2019-04-06 14:50 | NUR ---
NURSE NOTES: Spoke to LONDON Corrales from [facility] regarding patient's transferring [facility] per ALS transportation per Dr. Albarado's order. Receiving nurse repeated and acknowledged the order. 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
--- NOTE | 2019-04-06 15:05 | NUR ---
NURSE NOTES: Patient's discharged per Dr. Albarado's order. Patient's in stable condition, AO x3, denies pain, no s/s of acute distress or SOB. Patient's belonging list and discharge paper went over with patient and signed by patient and nurse at bedside. Patient's picked up by ALS with continuous cardiac monitor technician. Patient's discharged with IV. ID band is discarded properly. [facility] cardiac monitor technician is removed. Patient ambulates with assist. Charge nurse and diagnostic cardiac sonographer aware.
--- NOTE | 2019-04-09 08:35 | Discharge Summary ---
Discharge Summary Discharge Summary _ DATE OF ADMISSION: 03/31/2019 DATE OF DISCHARGE: 04/06/2019 DISCHARGED BY: Dr. Walton REASON FOR ADMISSION: 78 years old male, resident of assisted living facility, with past medical history of COPD, emphysema, hypertensive cardiovascular disease, diastolic heart failure, benign prostatic hypertrophy, large neck lipoma, presented to emergency department, complaining of the right arm weakness for 2 days. Patient recently was discharged from [facility] for COPD exacerbation. Upon presentation patient was severely tachycardic with heart rate of 133, pulse oximetry was 94% on 2 L of oxygen via nasal cannula. ABG on 2 L of oxygen via nasal cannula was stable. CT head revealed a moderate degree of vasogenic edema within the left posterior frontal and parietal lobe. Suspected 2.5 cm hypodensity at the central aspect of the edema , which may represent tumor, abscess or other pathology such as old hematoma. Recommended further evaluation with gadolinium-enhanced MRI. Chest x-ray revealed hyperexpanded lungs with bronchial wall thickening, consistent with COPD and chronic bronchitis. No infiltrate was identified. Laboratory work-up revealed leukocytosis WBC 15.1, hemoglobin 13.5 hematocrit 39.8, platelet count 206. Chemistry showed sodium 132, chloride 95. Stable renal parameters. Magnesium 1.6. Troponin negative. pro BNP 147. Patient subsequently admitted to telemetry floor for further management. CONSULTANTS: pulmonary Dr. Jameson Psychiatrist [facility] COU[facility]SE: Patient admitted to telemetry floor. Patient was placed on the waiting list for transfer to [facility] for neurosurgery evaluation by Dr. Michael Felton. Home medications were continued. Education Managers followed. Supplemental oxygen titrated to keep pulse oximetry above 92%. Pulmonary toilet provided with bronchodilator as needed. Patient was on steroids and empiric antibiotic provided. DVT prophylaxis provided. Leukocytosis was likely steroid-induced. Steroids tapered and changed from IV to oral route. Prior to discharge pulse oximetry was stable per liter of oxygen via nasal cannula 98%. Patient was monitored on telemetry floor. Tachycardia resolved. Telemetry showed sinus rhythm . GI prophylaxis provided. Magnesium was replaced. Initial hyponatremia resolved. Sodium 136 prior to discharge. Supportive care provided. Psychiatrist followed. Per psychiatrist patient had anxiety and depression and was reluctant to take any psychiatric medication. Reality orientation and supportive therapy provided. On 11/9 bed became available at [facility] Patient was transferred via [facility] ambulance for further evaluation and management by neurosurgeon. 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 DISCHARGE INSTRUCTIONS: Patient was discharged to higher level of care /[facility] for neurosurgery evaluation and further management. I have been assigned to dictate discharge summary for this account. I was not involved in the patient's management. Pretty Funes NP Apr 09, 2019 08:35
== END 2019-04-06 15:19 | disposition short-term general hospital (02) | DRG 191 ==
LOC: EDBD 23:23 → EDUNIT# 23:23 → EMR 23:42 → 2E 23:52 → EDBEDREQ 04-01 01:20 → ICU 04-01 09:41 → 2W 04-02 16:05 → 2E 04-03 00:39
DX: J43.9 Emphysema, unspecified (principal); E87.1 Hypo-osmolality and hyponatremia; I50.32 Chronic diastolic (congestive) heart failure; D49.6 Neoplasm of unspecified behavior of brain; G83.21 Monoplegia of upper limb affecting right dominant side; D17.0 Benign lipomatous neoplasm of skin and subcutaneous tissue of head, face and neck; N40.0 Benign prostatic hyperplasia without lower urinary tract symptoms; Z79.82 Long term (current) use of aspirin; I11.0 Hypertensive heart disease with heart failure; F41.9 Anxiety disorder, unspecified; T38.0X5A Adverse effect of glucocorticoids and synthetic analogues, initial encounter; D72.829 Elevated white blood cell count, unspecified; R00.0 Tachycardia, unspecified; F32.9 Major depressive disorder, single episode, unspecified
CPT/HCPCS: 36415; 36600; 70450; 71045; 80053; 82248; 82803; 83605; 83690; 83735; 83880; 84484; 85025; 87040; 93005; 94640; 96365; 96366; 96368; 96375; 99285; J7030; J7620